=== PATIENT | male | born 1955 | race Caucasian/White ===

== ENCOUNTER 2023-02-06 11:29 | Outpatient (CLI) | payer OTHER, SELFPAY ==
--- OUTSIDE RECORDS SUMMARY | 2023-02-06 11:33 | XMS_ITS | Continuity of Care Document ---
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 Plaquenil 200 mg tablet Denied Take 1 tablet 2 times daily - Active Patient needs to contact clinic. methotrexate sodium 2.5 mg tablet Denied take 5 Tablet by oral route every week - Active Patient needs to contact clinic folic acid 1 mg tablet Take 4 tablets daily - Active Remicade 100 mg intravenous solution Administer REMICADE 700mg IV every 8 weeks - Active gabapentin 300 mg capsule take 1 capsule by oral route 2 times daily as needed - Active TYLENOL (unknown strength) take 1 tablet by oral route 1-2 times daily Not Available - Active Imitrex 50 mg tablet take 2 tablet (100MG) by oral route once with fluids as early as possible after the onset of a migraine attack;may repeat after 2 hours if headache returns, not to exceed 200mg in 24hrs - Active omeprazole 20 mg Cap, delayed release take 1 capsule (20MG) by oral route every day 20 MG - Active Procedures Procedure Date Office/Outpatient Visit, Est Routine Venipuncture Rbc Sed Rate, Nonautomated Assay Of Serum Albumin Assay Of Creatinine Transferase (Ast) (Sgot) Alanine Amino (Alt) (Sgpt) CReactive Protein Complete Cbc, Automated Remicade Infliximab Chemo, Iv Infusion, 1 Hr Chemo, Iv Infusion, Addl Hr Normal Saline Solution Infus Remicade Infliximab Chemo, Iv Infusion, 1 Hr Chemo, Iv Infusion, Addl Hr Normal Saline Solution Infus Office/Outpatient Visit, Est Routine Venipuncture Rbc Sed Rate, Nonautomated Assay Of Serum Albumin Assay Of Creatinine Transferase (Ast) (Sgot) Alanine Amino (Alt) (Sgpt) CReactive Protein Complete Cbc, Automated Remicade Infliximab Chemo, Iv Infusion, 1 Hr Chemo, Iv Infusion, Addl Hr Normal Saline Solution Infus Office/Outpatient Visit, Est Routine Venipuncture Specimen Handling Rbc Sed Rate, Nonautomated Assay Of Serum Albumin Assay Of Creatinine Transferase (Ast) (Sgot) Alanine Amino (Alt) (Sgpt) CReactive Protein Complete Cbc, Automated Tb Test, Cell Immun Measure Remicade Infliximab Chemo, Iv Infusion, 1 Hr Chemo, Iv Infusion, Addl Hr Normal Saline Solution Infus Remicade Infliximab Chemo, Iv Infusion, 1 Hr Chemo, Iv Infusion, Addl Hr Normal Saline Solution Infus Office/Outpatient Visit, Est Routine Venipuncture Complete Cbc, Automated Assay Of Serum Albumin Assay Of Creatinine Transferase (Ast) (Sgot) Alanine Amino (Alt) (Sgpt) Encounter Created In Error Dxa Bone Density, Axial Remicade Infliximab Chemo, Iv Infusion, 1 Hr Chemo, Iv Infusion, Addl Hr Normal Saline Solution Infus Remicade Infliximab Chemo, Iv Infusion, 1 Hr Chemo, Iv Infusion, Addl Hr Normal Saline Solution Infus Office/Outpatient Visit, Est Routine Venipuncture Complete Cbc, Automated Assay Of Serum Albumin Assay Of Creatinine Transferase (Ast) (Sgot) Alanine Amino (Alt) (Sgpt) Remicade Infliximab Chemo, Iv Infusion, 1 Hr Chemo, Iv Infusion, Addl Hr Normal Saline Solution Infus Remicade Infliximab Chemo, Iv Infusion, 1 Hr Chemo, Iv Infusion, Addl Hr Normal Saline Solution Infus Office/Outpatient Visit, Est Routine Venipuncture Complete Cbc, Automated Assay Of Serum Albumin Assay Of Creatinine Transferase (Ast) (Sgot) Alanine Amino (Alt) (Sgpt) Remicade Infliximab Chemo, Iv Infusion, 1 Hr Chemo, Iv Infusion, Addl Hr Normal Saline Solution Infus Remicade Infliximab Chemo, Iv Infusion, 1 Hr Chemo, Iv Infusion, Addl Hr Normal Saline Solution Infus Office/Outpatient Visit, Est Routine Venipuncture Complete Cbc, Automated Assay Of Serum Albumin Assay Of Creatinine Transferase (Ast) (Sgot) Alanine Amino (Alt) (Sgpt) Remicade Infliximab Chemo, Iv Infusion, 1 Hr Chemo, Iv Infusion, Addl Hr Normal Saline Solution Infus Office/Outpatient Visit, Est Routine Venipuncture Complete Cbc WAuto Diff Wbc Rbc Sed Rate, Nonautomated CReactive Protein Assay Of Serum Albumin Assay Of Creatinine Transferase (Ast) (Sgot) Alanine Amino (Alt) (Sgpt) Remicade Infliximab Chemo, Iv Infusion, 1 Hr Chemo, Iv Infusion, Addl Hr Normal Saline Solution Infus Remicade Infliximab Chemo, Iv Infusion, 1 Hr Chemo, Iv Infusion, Addl Hr Normal Saline Solution Infus Office/Outpatient Visit, Est Routine Venipuncture Complete Cbc WAuto Diff Wbc Assay Of Serum Albumin Assay Of Creatinine Transferase (Ast) (Sgot) Alanine Amino (Alt) (Sgpt) Remicade Infliximab Chemo, Iv Infusion, 1 Hr Chemo, Iv Infusion, Addl Hr Normal Saline Solution Infus Remicade Infliximab Chemo, Iv Infusion, 1 Hr Chemo, Iv Infusion, Addl Hr Normal Saline Solution Infus Remicade Infliximab Chemo, Iv Infusion, 1 Hr Chemo, Iv Infusion, Addl Hr Normal Saline Solution Infus Office/Outpatient Visit, Est Routine Venipuncture Complete Cbc WAuto Diff Wbc Rbc Sed Rate, Nonautomated CReactive Protein Assay Of Serum Albumin Assay Of Creatinine Transferase (Ast) (Sgot) Alanine Amino (Alt) (Sgpt) Remicade Infliximab Chemo, Iv Infusion, 1 Hr Chemo, Iv Infusion, Addl Hr Normal Saline Solution Infus Remicade Infliximab Chemo, Iv Infusion, 1 Hr Chemo, Iv Infusion, Addl Hr Normal Saline Solution Infus Office/Outpatient Visit, Est Routine Venipuncture Complete Cbc WAuto Diff Wbc Assay Of Serum Albumin Assay Of Creatinine Transferase (Ast) (Sgot) Alanine Amino (Alt) (Sgpt) Dxa Bone Density, Axial Remicade Infliximab Chemo, Iv Infusion, 1 Hr Chemo, Iv Infusion, Addl Hr Normal Saline Solution Infus Office/Outpatient Visit, Est Routine Venipuncture Complete Cbc WAuto Diff Wbc Rbc Sed Rate, Nonautomated CReactive Protein Assay Of Serum Albumin Assay Of Creatinine Transferase (Ast) (Sgot) Alanine Amino (Alt) (Sgpt) Remicade Infliximab Chemo, Iv Infusion, 1 Hr Chemo, Iv Infusion, Addl Hr Normal Saline Solution Infus Remicade Infliximab Chemo, Iv Infusion, 1 Hr Chemo, Iv Infusion, Addl Hr Normal Saline Solution Infus Remicade Infliximab Chemo, Iv Infusion, 1 Hr Chemo, Iv Infusion, Addl Hr Normal Saline Solution Infus Office/Outpatient Visit, Est Routine Venipuncture Complete Cbc WAuto Diff Wbc Assay Of Serum Albumin Assay Of Creatinine Transferase (Ast) (Sgot) Alanine Amino (Alt) (Sgpt) Remicade Infliximab Chemo, Iv Infusion, 1 Hr Chemo, Iv Infusion, Addl Hr Normal Saline Solution Infus Remicade Infliximab Chemo, Iv Infusion, 1 Hr Chemo, Iv Infusion, Addl Hr Normal Saline Solution Infus Office/Outpatient Visit, Est Routine Venipuncture Complete Cbc WAuto Diff Wbc Assay Of Serum Albumin Assay Of Creatinine Transferase (Ast) (Sgot) Alanine Amino (Alt) (Sgpt) Remicade Infliximab Chemo, Iv Infusion, 1 Hr Chemo, Iv Infusion, Addl Hr Normal Saline Solution Infus No Charge Office Visit Remicade Infliximab Chemo, Iv Infusion, 1 Hr Chemo, Iv Infusion, Addl Hr Normal Saline Solution Infus Remicade Infliximab Chemo, Iv Infusion, 1 Hr Chemo, Iv Infusion, Addl Hr Normal Saline Solution Infus Office/Outpatient Visit, Est Routine Venipuncture Complete Cbc WAuto Diff Wbc Assay Of Serum Albumin Assay Of Creatinine Transferase Ast Sgot Alanine Amino (Alt) (Sgpt) Remicade Infliximab Chemo, Iv Infusion, 1 Hr Chemo, Iv Infusion, Addl Hr Normal Saline Solution Infus Remicade Infliximab Chemo, Iv Infusion, 1 Hr Chemo, Iv Infusion, Addl Hr Normal Saline Solution Infus Office/Outpatient Visit, Est Routine Venipuncture Complete Cbc WAuto Diff Wbc Assay Of Serum Albumin Assay Of Creatinine Transferase Ast Sgot Alanine Amino Alt Sgpt Remicade Infliximab Chemo, Iv Infusion, 1 Hr Chemo, Iv Infusion, Addl Hr Normal Saline Solution Infus Remicade Infliximab Chemo, Iv Infusion, 1 Hr Chemo, Iv Infusion, Addl Hr Normal Saline Solution Infus Office/Outpatient Visit, Est Routine Venipuncture Complete Cbc WAuto Diff Wbc Assay Of Serum Albumin Assay Of Creatinine Transferase Ast Sgot Alanine Amino Alt Sgpt Remicade Infliximab Chemo, Iv Infusion, 1 Hr Chemo, Iv Infusion, Addl Hr Normal Saline Solution Infus Remicade Infliximab Chemo, Iv Infusion, 1 Hr Chemo, Iv Infusion, Addl Hr Normal Saline Solution Infus Office/Outpatient Visit, Est Routine Venipuncture Complete Cbc WAuto Diff Wbc Assay Of Serum Albumin Assay Of Creatinine Transferase Ast Sgot Alanine Amino Alt Sgpt Dxa Bone Density, Axial Office/Outpatient Visit, Est Routine Venipuncture Complete Cbc WAuto Diff Wbc Assay Of Serum Albumin Assay Of Creatinine Transferase Ast Sgot Alanine Amino Alt Sgpt Advance Directives Directive Yes / No Effective Date File Name No Information Encounters Encounter Description Practice Location Reason(s) For Visit Diagnoses Date Provider Providers Copied on Encounter [facility] , [address], [place], [address], [place] tel:[phone] [facility] No Information 0 Wilton Elvira. [address], [address], [place], [address], [place]. tel:[phone] [facility] , [address], [place], [address], [place] tel:[phone] [facility] , No Information 8 9 Reena Yanick. [facility] [address], [place], [address], [place]. tel:[phone] [facility] , [address], [place], [address], [place] tel:[phone] [facility] , No Information 3 0-201 9 Reena Yanick. [facility] [address], [place], [address], [place]. tel:[phone] [facility] , [address], [place], [address], [place] tel:[phone] [facility] , No Information 2201 9 Reena Yanick. [facility] [address], [place], [address], [place]. tel:[phone] Office/Outpa tient Visit, Est [facility] , [address], [place], [address], [place] tel:[phone] [facility] , Rheumatoid arthritis (chief complaint) Diabetes mellitus type 2Seronegativ e RAOsteopenia High risk medication monitoring Reena Herndon. [facility] [address], [place], [address], [place]. tel:[phone] Referring Provider: Yanick Lentz, [facility] [address], [place], [address]. tel:[phone] [facility] , [address], [place], [address], [place] tel:[phone] [facility] , No Information Matthew Copeland. [facility] [address], [place], [address], [place]. tel:[phone] Referring Provider: Dinorah Gamble, [facility] [address], [place], [address]. tel:[phone] [facility] , [address], [place], [address], [place] tel:[phone] [facility] , Seronegative RA Mariluz White. [facility] [address], [place], [address], [place]. tel:[phone] Referring Provider: Christopher Lentz, [facility] [address], [place], [address]. tel:[phone] Office/Outpa tient Visit, Est [facility] , [address], [place], [address], [place] tel:[phone] [facility] , Rheumatoid arthritis (chief complaint) Diabetes mellitus type 2Seronegativ e RAOsteopenia High risk medication monitoring 8 Reena Herndon. [facility] [address], [place], [address], [place]. tel:[phone] Referring Provider: Yanick Lentz, [facility] [address], [place], [address]. tel:[phone] [facility] , [address], [place], [address], [place] tel:[phone] [facility] , Seronegative RA Mariluz White. [facility] [address], [place], [address], [place]. tel:[phone] Referring Provider: Christopher Lentz [facility] [address], [place], [address]. tel:[phone] Office/Outpa tient Visit, Est [facility] , [address], [place], [address], [place] tel:[phone] [facility] , Rheumatoid arthritis (chief complaint) Diabetes mellitus type 2Seronegativ e RABack painOsteopen iaHigh risk medication monitoring 8 Reena Herndon. [facility] [address], [place], [address], [place]. tel:[phone] Referring Provider: Yanick Lentz, [facility] [address], [place], [address]. tel:[phone] [facility] , [address], [place], [address], [place] tel:[phone] [facility] , Seronegative RA 8 Skemp Christopher. [facility] [address], [place], [address], [place]. tel:[phone] Referring Provider: Christopher Mcgraw A, [facility] [address], [place], [address]. tel:[phone] [facility] , [address], [place], [address], [place] tel:[phone] [facility] , Seronegative RA 8 Skemp Christopher. [facility] [address], [place], [address], [place]. tel:[phone] Referring Provider: Christopher Mcgraw A, [facility] [address], [place], [address]. tel:[phone] [facility] , [address], [place], [address], [place] tel:[phone] [facility] , No Information 7 Reena Herndon. [facility] [address], [place], [address], [place]. tel:[phone] Office/Outpa tient Visit, Est [facility] , [address], [place], [address], [place] tel:[phone] [facility] , Rheumatoid arthritis (chief complaint) Diabetes mellitus type 2Seronegativ e RAOsteopenia High risk medication monitoringBa ck pain Nov-2 7-201 7 [facility] Yanick. [facility] [address], [place], [address], [place]. tel:[phone] Referring Provider: Yanick Lentz, [facility] [address], [place], [address]. tel:[phone] [facility] , [address], [place], [address], [place] tel:[phone] [facility] , No Information [facility] Yanick. [facility] [address], [place], [address], [place]. tel:[phone] Referring Provider: Yanick Lentz, [facility] [address], [place], [address]. tel:[phone] [facility] , [address], [place], [address], [place] tel:[phone] [facility] , Osteopenia [facility] Yanick. [facility] [address], [place], [address], [place]. tel:[phone] Referring Provider: Yanick Lentz, [facility] [address], [place], [address]. tel:[phone] [facility] , [address], [place], [address], [place] tel:[phone] [facility] , Seronegative RA Apr- [facility] Yanick. [facility] [address], [place], [address], [place]. tel:[phone] Referring Provider: Yanick Lentz, [facility] [address], [place], [address]. tel:[phone] [facility] , [address], [place], [address], [place] tel:[phone] [facility] , Seronegative RA Reena Herndon. [facility] [address], [place], [address], [place]. tel:[phone] Referring Provider: Yanick Lentz, [facility] [address], [place], [address]. tel:[phone] Office/Outpa tient Visit, Est [facility] , [address], [place], [address], [place] tel:[phone] [facility] , Rheumatoid arthritis (chief complaint) Diabetes mellitus type 2Seronegativ e RAOsteopenia High risk medication monitoring Reena Herndon. [facility] [address], [place], [address], [place]. tel:[phone] Referring Provider: Yanick Lentz, [facility] [address], [place], [address]. tel:[phone] [facility] , [address], [place], [address], [place] tel:[phone] [facility] , Seronegative RA Matthew Copeland. [facility] [address], [place], [address], [place]. tel:[phone] Referring Provider: Dinorah Gamble, [facility] [address], [place], [address]. tel:[phone] [facility] , [address], [place], [address], [place] tel:[phone] [facility] , Seronegative RA Oct-2 Matthew Copeland. [facility] [address], [place], [address], [place]. tel:[phone] Referring Provider: Dinorah Gamble, [facility] [address], [place], [address]. tel:[phone] Office/Outpa tient Visit, Est [facility] , [address], [place], [address], [place] tel:[phone] [facility] , Rheumatoid arthritis (chief complaint) Seronegative RAOsteopenia High risk medication monitoringDi abetes mellitus type 2 Sep- Reena Herndon. [facility] [address], [place], [address], [place]. tel:[phone] Referring Provider: Yanick Lentz, [facility] [address], [place], [address]. tel:[phone] [facility] , [address], [place], [address], [place] tel:[phone] [facility] , Seronegative RA Jul- Reena Herndon. [facility] [address], [place], [address], [place]. tel:[phone] Referring Provider: Yanick Lentz, [facility] [address], [place], [address]. tel:[phone] [facility] , [address], [place], [address], [place] tel:[phone] [facility] , Seronegative RA Jun-0 6 [facility] Yanick. [facility] [address], [place], [address], [place]. tel:[phone] Referring Provider: Yanick Lentz, [facility] [address], [place], [address]. tel:[phone] Office/Outpa tient Visit, Est [facility] , [address], [place], [address], [place] tel:[phone] [facility] , Rheumatoid arthritis (chief complaint) Seronegative RAOsteopenia High risk medication monitoring 6 [facility]. [facility] [address], [place], [address], [place]. tel:[phone] Referring Provider: Yanick Lentz, [facility] [address], [place], [address]. tel:[phone] [facility] , [address], [place], [address], [place] tel:[phone] [facility] , Seronegative RA Mar- 6 [facility] Yanick. [facility] [address], [place], [address], [place]. tel:[phone] Referring Provider: Yanick Lentz, [facility] [address], [place], [address]. tel:[phone] Office/Outpa tient Visit, Est [facility] , [address], [place], [address], [place] tel:[phone] [facility] , Rheumatoid arthritis (chief complaint) Seronegative RAOsteopenia High risk medication monitoring 6 [facility] Yanick. [facility] [address], [place], [address], [place]. tel:[phone] Referring Provider: Yanick Lentz, [facility] [address], [place], [address]. tel:[phone] [facility] , [address], [place], [address], [place] tel:[phone] [facility] , Seronegative RA 6 [facility] Yanick. [facility] [address], [place], [address], [place]. tel:[phone] Referring Provider: Yanick Lentz, [facility] [address], [place], [address]. tel:[phone] [facility] , [address], [place], [address], [place] tel:[phone] [facility] , Seronegative RA 6 [facility] Yanick. [facility] [address], [place], [address], [place]. tel:[phone] Referring Provider: Yanick Lentz, [facility] [address], [place], [address]. tel:[phone] Office/Outpa tient Visit, Est [facility] , [address], [place], [address], [place] tel:[phone] [facility] , Rheumatoid arthritis (chief complaint) Seronegative RAOsteopenia High risk medication monitoring 6 Reena Herndon. [facility] [address], [place], [address], [place]. tel:[phone] Referring Provider: Yanick Lentz, [facility] [address], [place], [address]. tel:[phone] [facility] , [address], [place], [address], [place] tel:[phone] [facility] , No Information 6 Reena Herndon. [facility] [address], [place], [address], [place]. tel:[phone] Referring Provider: Yanick Lentz, [facility] [address], [place], [address]. tel:[phone] [facility] , [address], [place], [address], [place] tel:[phone] [facility] , Seronegative RA 6 Reenacassidy Herndon. [facility] [address], [place], [address], [place]. tel:[phone] Referring Provider: Yanick Lentz, [facility] [address], [place], [address]. tel:[phone] [facility] , [address], [place], [address], [place] [phone] [facility] , Seronegative RA Nov- 0-201 5 Skemp Christopher. [facility] [address], [place], [address], [place]. tel:[phone] Referring Provider: Christopher Skemp A, [facility] [address], [place], [address]. tel:[phone] [facility] , [address], [place], [address], [place] tel:[phone] [facility] , Seronegative RA 7201 5 Reena Herndon. [facility] [address], [place], [address], [place]. tel:[phone] [facility] , [address], [place], [address], [place] tel:[phone] [facility] , Seronegative RA Mar- 5201 5 Reena Herndon. [facility] [address], [place], [address], [place]. tel:[phone] Referring Provider: Yanick Lentz, [facility] [address], [place], [address]. tel:[phone] [facility] , [address], [place], [address], [place] tel:[phone] [facility] , Seronegative RA 6201 5 Reena Herndon. [facility] [address], [place], [address], [place]. tel:[phone] Office/Outpa tient Visit, Est [facility] , [address], [place], [address], [place] tel:[phone] [facility] , Rheumatoid arthritis (chief complaint) Rheumatoid ArthritisOst eopeniaThera peutic Drug Monitoring Reena Yanick. [facility] [address], [place], [address], [place]. tel:[phone] Referring Provider: Yanick Lentz, [facility] [address], [place], [address]. tel:[phone] [facility] , [address], [place], [address], [place] tel:[phone] [facility] , Rheumatoid Arthritis Reena Yanick. [facility] [address], [place], [address], [place]. tel:[phone] Referring Provider: Yanick Lentz, [facility] [address], [place], [address]. tel:[phone] [facility] , [address], [place], [address], [place] tel:[phone] [facility] , Rheumatoid Arthritis Reena Herndon. [facility] [address], [place], [address], [place]. tel:[phone] Referring Provider: Yanick Lentz, [facility] [address], [place], [address]. tel:[phone] Office/Outpa tient Visit, Est [facility] , [address], [place], [address], [place] tel:[phone] [facility] , Rheumatoid arthritis (chief complaint) Rheumatoid ArthritisThe rapeutic Drug MonitoringOs teopenia Reena Herndon. [facility] [address], [place], [address], [place]. tel:[phone] Referring Provider: Yanick Lentz, [facility] [address], [place], [address]. tel:[phone] [facility] , [address], [place], [address], [place] tel:[phone] [facility] , No Information Reena Herndon. [facility] [address], [place], [address], [place]. tel:[phone] Referring Provider: Yanick Lentz, [facility] [address], [place], [address]. tel:[phone] [facility] , [address], [place], [address], [place] tel:[phone] [facility] , Rheumatoid Arthritis Reena Herndon. [facility] [address], [place], [address], [place]. tel:[phone] Referring Provider: Yanick Lentz, [facility] [address], [place], [address]. tel:[phone] [facility] , [address], [place], [address], [place] tel:[phone] [facility] , Rheumatoid Arthritis 5 Reena Herndon. [facility] [address], [place], [address], [place]. tel:[phone] Office/Outpa tient Visit, Est [facility] , [address], [place], [address], [place] tel:[phone] [facility] , Rheumatoid Arthritis (chief complaint) Rheumatoid ArthritisDis order of bone and cartilage, unspecifiedT herapeutic Drug Monitoring Reena Herndon. [facility] [address], [place], [address], [place]. tel:[phone] Referring Provider: Yanick Lentz, [facility] [address], [place], [address]. tel:[phone] [facility] , [address], [place], [address], [place] tel:[phone] [facility] , Rheumatoid Arthritis 5 Reena Herndon. [facility] [address], [place], [address], [place]. tel:[phone] Referring Provider: Yanick Lentz, [facility] [address], [place], [address]. tel:[phone] [facility] , [address], [place], [address], [place] tel:[phone] [facility] , Rheumatoid Arthritis 5 Reena Herndon. [facility] [address], [place], [address], [place]. tel:[phone] [facility] , [address], [place], [address], [place] tel:[phone] [facility] , Rheumatoid Arthritis 4 Reena Herndon. [facility] [address], [place], [address], [place]. tel:[phone] Referring Provider: Yanick Lentz, [facility] [address], [place], [address]. tel:[phone] [facility] , [address], [place], [address], [place] tel:[phone] [facility] , Rheumatoid Arthritis 4 Reena Herndon. [facility] [address], [place], [address], [place]. tel:[phone] [facility] , [address], [place], [address], [place] tel:[phone] [facility] , Rheumatoid Arthritis 4 Reena Herndon. [facility] [address], [place], [address], [place]. tel:[phone] Referring Provider: Yanick Lentz, [facility] [address], [place], [address]. tel:[phone] [facility] , [address], [place], [address], [place] tel:[phone] [facility] , Rheumatoid Arthritis 4 Reena Herndon. [facility] [address], [place], [address], [place]. tel:[phone] Office/Outpa tient Visit, Est [facility] , [address], [place], [address], [place] tel:[phone] [facility] , Rheumatoid Arthritis (chief complaint) Rheumatoid ArthritisThe rapeutic Drug MonitoringDi sorder of bone and cartilage, unspecifiedP lantar fascial fibromatosis 0 4 Reena Herndon. [facility] [address], [place], [address], [place]. tel:[phone] Referring Provider: Yanick Lentz, [facility] [address], [place], [address]. tel:[phone] [facility] , [address], [place], [address], [place] tel:[phone] [facility] , Rheumatoid Arthritis 4 Reena Herndon. [facility] [address], [place], [address], [place]. tel:[phone] Referring Provider: Yanick Lentz, [facility] [address], [place], [address]. tel:[phone] [facility] , [address], [place], [address], [place] tel:[phone] [facility] , Rheumatoid Arthritis 4 Reena Herndon. [facility] [address], [place], [address], [place]. tel:[phone] [facility] , [address], [place], [address], [place] tel:[phone] [facility] , Rheumatoid Arthritis 0 4 [facility] Yanick. [facility] , [facility] [address], [place], [address], [place]. tel:[phone] Referring Provider: Yanick Lentz, [facility] [address], [place], [address]. tel:[phone] [facility] , [address], [place], [address], [place] tel:[phone] [facility] , Rheumatoid Arthritis 0 4 [facility] Yan[facility]. [facility] , [facility] [address], [place], [address], [place]. tel:[phone] Office/Outpa tient Visit, Est [facility] , [address], [place], [address], [place] tel:[phone] [facility] , Rheumatoid Arthritis (chief complaint) Rheumatoid ArthritisDis order of bone and cartilage, unspecifiedT herapeutic Drug MonitoringDy suria 4 Reenacassidy Herndon. [facility] , [facility] [address], [place], [address], [place]. tel:[phone] Referring Provider: Yanick Lentz, [facility] [address], [place], [address]. tel:[phone] [facility] , [address], [place], [address], [place] tel:[phone] [facility] , Rheumatoid Arthritis 4 [facility] Yan[facility]. [facility] , [facility] [address], [place], [address], [place]. tel:[phone] Referring Provider: Yanick Lentz, [facility] [address], [place], [address]. tel:[phone] [facility] , [address], [place], [address], [place] tel:[phone] [facility] , Monitor chronic high risk medications (chief complaint) No Information 4 [facility] Yanick. [facility] [address], [place], [address], [place]. tel:[phone] Referring Provider: Yanick Lentz, [facility] [address], [place], [address]. tel:[phone] [facility] , [address], [place], [address], [place] tel:[phone] [facility] , Rheumatoid Arthritis 4 Reenacassidy Herndon. [facility] [address], [place], [address], [place]. tel:[phone] [facility] , [address], [place], [address], [place] tel:[phone] [facility] , Rheumatoid Arthritis 4 [facility] Yan[place]. [facility] , [facility] [address], [place], [address], [place]. tel:[phone] Referring Provider: Yanick Lentz, [facility] [address], [place], [address]. tel:[phone] [facility] , [address], [place], [address], [place] tel:[phone] [facility] , Rheumatoid Arthritis 4 Reena Herndon. [facility] [address], [place], [address], [place]. tel:[phone] [facility] , [address], [place], [address], [place] tel:[phone] [facility] , Rheumatoid Arthritis 4 Reenacassidy Herndon. [facility] , [facility] [address], [place], [address], [place]. tel:[phone] [facility] , [address], [place], [address], [place] tel:[phone] [facility] , Rheumatoid Arthritis 3 Reenacassidy Herndon. [facility] [address], [place], [address], [place]. tel:[phone] Referring Provider: Yanick Lentz, [facility] [address], [place], [address]. tel:[phone] [facility] , [address], [place], [address], [place] tel:[phone] [facility] , Rheumatoid Arthritis 3 Reena Herndon. [facility] [address], [place], [address], [place]. tel:[phone] [facility] , [address], [place], [address], [place] tel:[phone] [facility] , Rheumatoid Arthritis 3 [facility]. [facility] , [facility] [address], [place], [address], [place]. tel:[phone] Office/Outpa tient Visit, Est [facility] , [address], [place], [address], [place] tel:[phone] [facility] , Rheumatoid Arthritis (chief complaint) Rheumatoid ArthritisDis order of bone and cartilage, unspecifiedT herapeutic Drug Monitoring 3 [facility] Yan[facility]. [facility] , [facility] [address], [place], [address], [place]. tel:[phone] Referring Provider: Yanick Lentz, [facility] [address], [place], [address]. tel:[phone] [facility] , [address], [place], [address], [place] tel:[phone] [facility] , Rheumatoid Arthritis 3 [facility]. [facility] , [facility] [address], [place], [address], [place]. tel:[phone] Referring Provider: Yanick Lentz, [facility] [address], [place], [address]. tel:[phone] [facility] , [address], [place], [address], [place] tel:[phone] [facility] , Rheumatoid Arthritis 3 Reena Herndon. [facility] [address], [place], [address], [place]. tel:[phone] [facility] , [address], [place], [address], [place] tel:[phone] [facility] , Rheumatoid Arthritis Reena Herndon. [facility] [address], [place], [address], [place]. tel:[phone] Referring Provider: Yanick Lentz, [facility] [address], [place], [address]. tel:[phone] [facility] , [address], [place], [address], [place] tel:[phone] [facility] , Rheumatoid Arthritis Reena Herndon. [facility] [address], [place], [address], [place]. tel:[phone] Office/Outpa tient Visit, Est [facility] , [address], [place], [address], [place] tel:[phone] [facility] , Rheumatoid Arthritis (chief complaint) Rheumatoid ArthritisDis order of bone and cartilage, unspecifiedT herapeutic Drug Monitoring 3 Reena Herndon. [facility] , [facility] [address], [place], [address], [place]. tel:[phone] Referring Provider: Yanick Lentz, [facility] , [facility] [address], [place], [address]. tel:[phone] [facility] , [address], [place], [address], [place] tel:[phone] [facility] , Rheumatoid Arthritis 7 3 [facility]. [facility] , [facility] [address], [place], [address], [place]. tel:[phone] Referring Provider: Yanick Lentz, [facility] [address], [place], [address]. tel:[phone] [facility] , [address], [place], [address], [place] tel:[phone] [facility] , Rheumatoid Arthritis 0201 3 [facility]. [facility] , [facility] [address], [place], [address], [place]. tel:[phone] [facility] , [address], [place], [address], [place] tel:[phone] [facility] , No Information 2 3 Reena Yanick. [facility] , [facility] [address], [place], [address], [place]. tel:[phone] Referring Provider: Yancik Lentz, [facility] , [facility] [address], [place], [address]. tel:[phone] Office/Outpa tient Visit, Est [facility] , [address], [place], [address], [place] tel:[phone] [facility] , Rheumatoid Arthritis (chief complaint) Rheumatoid ArthritisDis order of bone and cartilage, unspecifiedT herapeutic Drug MonitoringDi sorders of bursae and tendons in shoulder region, unspecified Apr-2 3 Reena Yanick. [facility] , [facility] [address], [place], [address], [place]. tel:[phone] Referring Provider: Yanick Lentz, [facility] [address], [place], [address]. tel:[phone] [facility] , [address], [place], [address], [place] tel:[phone] [facility] , Rheumatoid Arthritis Oct-0 3 Reena Yanick. [facility] , [facility] [address], [place], [address], [place]. tel:[phone] Referring Provider: Yanick Lentz, [facility] , [facility] [address], [place], [address]. tel:[phone] [facility] , [address], [place], [address], [place] tel:[phone] [facility] , Rheumatoid Arthritis Sep- 3 Reena Yanick. [facility] , [facility] [address], [place], [address], [place]. tel:[phone] Referring Provider: Yanick Lentz, [facility] , [facility] [address], [place], [address]. tel:[phone] [facility] , [address], [place], [address], [place] tel:[phone] [facility] , Rheumatoid Arthritis 3 Reena Herndon. [facility] [address], [place], [address], [place]. tel:[phone] Office/Outpa tient Visit, Est [facility] , [address], [place], [address], [place] tel:[phone] [facility] , Rheumatoid Arthritis (chief complaint) Rheumatoid ArthritisThe rapeutic Drug MonitoringDi sorders of bursae and tendons in shoulder region, unspecifiedO ther bursitis disordersDis order of bone and cartilage, unspecified 3 Reena Herndon. [facility] [address], [place], [address], [place]. tel:[phone] Referring Provider: Yanick Lentz, [facility] [address], [place], [address]. tel:[phone] [facility] , [address], [place], [address], [place] tel:[phone] [facility] , No Information 3 Reena Herndon. [facility] [address], [place], [address], [place]. tel:[phone] Referring Provider: Yanick Lentz, [facility] [address], [place], [address]. tel:[phone] Office/Outpa tient Visit, Est [facility] , [address], [place], [address], [place] tel:[phone] [facility] , Rheumatoid Arthritis (chief complaint) Rheumatoid ArthritisOth er specified counselingTh erapeutic Drug MonitoringDi sorders of bursae and tendons in shoulder region, unspecified 0201 2 Reena Herndon. [facility] [address], [place], [address], [place]. tel:[phone] Referring Provider: Yanick Lentz [facility] [address], [place], [address]. tel:[phone] Family History Family Member Type Diagnosis Age At Onset Problem (finding) No family hist ory of Rheumatoid arthritis Payers Payer name Insurance type Covered libertarian ID Authoriza tion(s) No Information Social History Type Description Quantity Date Captured Comments Alcohol Use Details Unknown Caffeine Use Details Unknown Tobacco Use Status No Information Smoking Status No Information Sex Male Chief Complaint And Reason For Visit No Information Reason For Referral Reason For Referral No Information History Of Present Illness Encounter Date Complaint History Of Prese nt Illness Rheumatoid arthritis Rheumatoid arthritis Rheumatoid arthritis Rheumatoid arthritis Rheumatoid arthritis Rheumatoid arthritis Rheumatoid arthritis Rheumatoid arthritis Rheumatoid arthritis Rheumatoid arthritis Rheumatoid arthritis Functional Status Date Functional Assessmen t No Information Instructions Date Instruction Additional Infor mation No Information Assessments Type Assessment Date No Information Patient Care Teams Name Effective Dates (start - stop) Status Members No Information
--- OUTSIDE RECORDS SUMMARY | 2023-02-06 11:33 | XMS_ITS | Continuity of Care Document ---
Author Name Unknown Organization [facility] Address [address] [place] [address] Phone Care Team Providers Care Rugby Union Footballer Name Role Phone River BARRAGAN, PhD, Michael Unavailable Unavai lable Allergies, Adverse Reactions, Alerts Substance Reaction Status Criticality PENICILLIN Active No Information doxycycline Rash Active No Information Medications Medication Instructions Dosage Effective Dates (start - stop) Status Comments ACETAMINOPHEN (unknown strength) Not Available - Active FOLIC ACID (unknown strength) Not Available - Active GABAPENTIN (unknown strength) Not Available - Active GLIMEPIRIDE (unknown strength) Not Available - Active LORATADINE (unknown strength) Not Available - Active MELOXICAM (unknown strength) Not Available - Active METFORMIN HCL (unknown strength) Not Available - Active OMEPRAZOLE (unknown strength) Not Available - Active OXYCODONE HCL (unknown strength) Not Available - Active PREDNISONE (unknown strength) Not Available - Active SUMATRIPTAN (unknown strength) Not Available - Active Procedures Procedure Date Office/Outpatient Visit,Est, Low 2020 Office/Outpatient Visit,Est, Mod 2020 Office/Outpatient Visit,Est, High Advance Directives Directive Yes / No Effective Date File Name No Information Encounters Encounter Description Practice Location Reason(s) For Visit Diagnoses Date Provider Providers Copied on Encounter [facility], [address], [facility] [place], [id number], [place] tel:[phone] [facility] No Information Rivre Rodriguez. [facility], [address], [place], [address], [place]. tel:[phone] Office/Outpat ient Visit,Est, Low [facility], [address], [place], [id number], [place] tel:[phone] [facility] No Information River Rodriguez. [facility], [address], [place], [address], [place]. tel:[phone] Referring Provider: Daphney Abbott, [address], [address]. tel:[phone] Office/Outpat ient Visit,Est, Mod [facility], [address], [place], [place], [id number], [place] tel:[phone] [facility] Spinal stenosis, lumbar region with neurogenic claudication River Rodriguez. [facility], [address], [place], [address], [place]. tel:[phone] Referring Provider: Daphney Abbott, [address], [address]. tel:[phone] Office/Outpat ient Visit,Est, High [facility], [address], [place], [id number], [place] tel:[phone] [facility] Spinal stenosis, lumbar region with neurogenic claudication River Rodriguez. [facility], [address], [place], [address], [place]. tel:[phone] Referring Provider: Daphney Abbott, [address], [address]. tel:[phone] [facility], [address], [place], [id number], [place] tel:[phone] [facility] [place] Cervicalgia River Rodriguez. [facility], [address], [place], [address], [place]. [phone] Family History Family Member Type Diagnosis Age At Onset No Information Payers Payer name Insurance type Covered green party ID Berenice nguyen(s) [facility] [id number] Social History Type Description Quantity Date Captured Comments Alcohol Use Details Unknown Caffeine Use Details Unknown Tobacco Use Status No Information Smoking Status No Information Sex Male Chief Complaint And Reason For Visit No Information Reason For Referral Reason For Referral No Information History Of Present Illness Encounter Date Complaint History Of Prese nt Illness No Information Functional Status Date Functional Assessmen t No Information Instructions Date Instruction Additional Infor mation No Information Assessments Type Assessment Date No Information Patient Care Teams Name Effective Dates (start - stop) Status Members No Information
[2023-02-06 14:09] LABS: Chloride* 105 mmol/L (96-114); Potassium* 4.3 mmol/L (3.6-5.1); Sodium* 140 mmol/L (135-149)
[2023-02-06 14:11] LABS: Cholesterol* 183 mg/dL (90-199)
[2023-02-06 14:12] LABS: Blood Urea Nitrogen* 32 mg/dL (7-30); Carbon Dioxide* 26 mmol/L (20-32); Estimated Glomerular Filt Rate 81 ml/min; Glucose* 139 mg/dL (60-115); Triglycerides* 172 mg/dL (40-149)
[2023-02-06 14:13] LABS: Calcium* 9.5 mg/dL (8.4-10.6); HDL Cholesterol* 41 mg/dL (>=40); LDL Cholesterol Calculated 108 mg/dL (<100)
== END 2023-02-06 11:30 | disposition home or self-care (01) ==
PROVIDERS: PCP Family Medicine; Visit Provider Family Medicine
DX: E11.9 Type 2 diabetes mellitus without complications (principal); E78.5 Hyperlipidemia, unspecified; Z12.5 Encounter for screening for malignant neoplasm of prostate
CPT/HCPCS: 80048; 80061; 84153

== ENCOUNTER 2024-03-17 08:24 | Outpatient (CLI) | payer OTHER, SELFPAY ==
--- OUTSIDE RECORDS SUMMARY | 2024-03-17 08:27 | XMS_ITS ---
Author Organization [facility] Address [address] [place] [address] Care Team Providers Care Peanut Salter Name Role Phone Unavailable Unavailable Unavailable Surgery Details Not on file Complications Check Surgery Details section. Procedure Estimated Blood Loss Check Surgery Details section. Procedure Findings Check Surgery Details section. Procedure Specimens Taken Check Surgery Details section.
--- OUTSIDE RECORDS SUMMARY | 2024-03-17 08:27 | XMS_ITS | Clinical Summary ---
Author Organization [facility] Address [address] [place] [address] Care Team Providers Care Front End Software Developer Name Role Phone Elsewhere, Pcp Primary Care Provider Unavailabl e Source Comments Patient records contain information from all sites at [facility]. For routine questions regarding patient records, call [phone] during business hours, M-F 8:00 AM - 5:00 PM Central Time. Record requests for emergency care only can be directed to [phone] at any time.[facility] Allergies No known active allergies Medications Medication Sig Dispensed Refills Start Date End Date Status acetaminophen (TYLENOL) 325 mg tablet Take 650 mg by mouth. Active blood sugar diagnostic strips Prodigy test strips, Dispense item covered by pt ins. Test one time per day. 03/01/2020 Active celecoxib (CeleBREX) 200 mg capsule Take 200 mg by mouth. 05/12/2021 Active folic acid 1 mg tablet Take 1 tablet by mouth daily. 03/26/2022 Active gabapentin (NEURONTIN) 600 mg tablet TAKE ONE TABLET BY MOUTH EVERY MORNING, TAKE ONE TABLET IN THE AFTERNOON, AND TAKE TWO TABLETS AT BEDTIME 12/01/2021 Active glimepiride (AMARYL) 2 mg tablet TAKE ONE TABLET BY MOUTH EVERY MORNING AND TAKE ONE TABLET BY MOUTH EVERY EVENING 04/10/2021 Active meloxicam (MOBIC) 15 mg tablet Take 1 tablet by mouth daily. 12/13/2020 Active metFORMIN (GLUCOPHAGE) 1,000 mg tablet Take 1 tablet by mouth 2 (two) times a day with meals. 02/28/2021 Active omeprazole (PriLOSEC) [address] capsule Take 1 capsule by mouth daily. 03/02/2022 Active oxyCODONE (ROXICODONE) 5 mg immediate release tablet Take 5 mg by mouth every 6 (six) hours as needed. 10/06/2020 Active predniSONE (DELTASONE) 1 mg tablet Take 1 tablet by mouth 2 (two) times a day with meals. 10/31/2020 Active predniSONE (DELTASONE) 20 mg tablet Take 20 mg by mouth. 05/30/2021 Active SUMAtriptan (IMITREX) 100 mg tablet TAKE ONE TABLET BY MOUTH TWICE DAILY NEEDED FOR MIGRAINE. TAKE AT MINIMUM OF 2 HOURS APART- MAX DOSE 200MG / 24HRS 05/02/2021 Active Social History Tobacco Use Types Packs/Day Years Used Date Smoking Tobacco: Former Cigarettes Smokeless Tobacco: Never Nutrition Answer Date Recorded Nutrition: EVOO Fat Source Unknown 12/12 Nutrition: Servings of Fruits/Vegetables per Day Not on file 12/12/2022 Dental Answer Date Recorded Dental: Regular Dentist Unknown 12/13/19 Sex and Gender Information Value Date Recorded Sex Assigned at Not on file Gender Identity Not on file Sexual Orientation Not on file Plan of Treatment Health Maintenance Due Date Last Done Comments CT Colonography 1955 Cologuard 1955 Colonoscopy 1955 Colorectal Cancer Screening 1955 FIT 1955 Hepatitis C Screening 1955 COVID-19 Vaccine (#1) 1958 Zoster Vaccines (1 of 2) 1972 Pneumococcal vaccine (65+ years) (2 of 2 - PPSV23 or PCV20) 02/07/2021 12/13/2020 Depression Screening (Annual PHQ-2) 07/15/2023 Fall Risk Screen (Annual) 07/15/2023 Influenza Vaccine (#1) 2024 Fasting Glucose for Diabetes Screening 05/30/2024 05/30/2021, 05/30/2021, 10/06/2020, Additional history exists DTaP,Tdap,and Td Vaccines (3 - Td or Tdap) 02/06/2033 02/06/2023, 01/18/2012 Abdominal Aortic Aneurysm (AAA) Screen Completed 10/05/2015, 06/09/2014 HPV Vaccines Aged Out No longer eligi ble based on patient's age to complete this topic Care Teams Front End Software Developer Relationship Specialty Start Date End Date Elsewhere, Pcp PCP - General Internal Medicine 12/13/22
--- OUTSIDE RECORDS SUMMARY | 2024-03-17 08:27 | XMS_ITS | Continuity of Care Document ---
Author Organization [facility] Address [address] [place] [address] Phone Care Team Providers Care Oral Hygienist Name Role Phone River BARRAGAN, PhD, Michael [...] Not Available - Active Procedures Procedure Date OFFICE/OUTPATIENT VISIT EST Phone Office/Outpatient Visit,Est, Low 2020 Office/Outpatient Visit,Est, Mod 2020 Office/Outpatient Visit,Est, High Advance Directives Directive Yes / No Effective Date File Name No Information Encounters Encounter Description Practice Location Reason(s) For Visit Diagnoses Date Provider Providers Copied on Encounter [facility], [address], [place], [id number], tel:[phone] [facility] No Information River Rodriguez. [facility], [address], [place], [address], [place]. [phone] OFFICE/OUTPAT IENT VISIT EST Phone [facility], [address], [place], [place], [id number], [place] tel:[phone] [facility] No Information River Rodriguez. [facility], [address], [place], [address], [place]. [phone] Referring Provider: Daphney Abbott, [address], [address]. tel:[phone] Office/Outpat ient Visit,Est, Low [facility], [address], [place], [id number], [place] tel:[phone] [facility] No Information River Rodriguez. [facility], [address], [place], [address], [place]. [phone] Referring Provider: Daphney Abbott, [address], [address]. tel:[phone] Office/Outpat ient Visit,Est, Mod [facility], [address], [place], [id number], [place] tel:[phone] [facility] Spinal stenosis, lumbar region with neurogenic claudication River Rodriguez. [facility], [address], [place], [address], [place]. tel:[phone] Referring Provider: Daphney Abbott, [address], [address]. tel:[phone] Office/Outpat ient Visit,Est, High [facility], [address], [place], [id number], [place] tel:[phone] [facility] Spinal stenosis, lumbar region with neurogenic claudication River Rodriguez. [facility], [address], [place], [address], [place]. tel:[phone] Referring Provider: Daphney Abbott, [facility] [address] [place] [address], [address]. tel:[phone] [facility], [address], [facility] [place] [id number], [place] tel:[phone] [facility] [place] Cervicalgia River Rodriguez. [facility], [address], [place], [address], [place]. tel:[phone] Family History Family Member Type Diagnosis Age At Onset No Information Payers Payer name Insurance type Covered constitution party ID Authoriza tion(s) No Information Social History [...]
--- OUTSIDE RECORDS SUMMARY | 2024-03-17 08:27 | XMS_ITS | Referral Summary ---
Author Organization [facility] Address [address] [place] [address] Care Team Providers Care Supervisor Stone Name Role Phone Elsewhere, Pcp Primary Care Provider Unavailabl e Source Comments Patient records contain information from all sites at [facility]. For routine questions regarding patient records, call [phone] during business hours, M-F 8:00 AM - 5:00 PM Central Time. Record requests for emergency care only can be directed to [phone] at any time.[facility] Allergies No known active allergies Medications Medication [...] Orientation Not on file Plan of Treatment Not on file Care Teams Supervisor Stone Relationship Specialty Start Date End Date Elsewhere, Pcp PCP - General Internal Medicine 12/13/22
--- OUTSIDE RECORDS SUMMARY | 2024-03-17 08:28 | XMS_ITS | Continuity of Care Document ---
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 [address], [address], [place], [address], [place]. tel:[phone] [facility] , [address], [place], [address], [place] tel:[phone] [facility] , No Information 9 Reena Herndon. [facility] [address], [place], [address], [place]. tel:[phone] [facility] , [address], [place], [address], [place] tel:[phone] [facility] , No Information 3 0-201 9 Reenavern Herndon. [facility] [address], [place], [address], [place]. tel:[phone] [facility] , [address], [place], [address], [place] tel:[phone] [facility] , No Information 2201 9 Reenavern Herndon. [facility] [address], [place], [address], [place]. tel:[phone] Office/Outpa tient Visit, Est [facility] , [address], [place], [address], [place] tel:[phone] [facility] , Rheumatoid arthritis (chief complaint) Diabetes mellitus type 2Seronegativ e RAOsteopenia High risk medication monitoring Reena Herndon. [facility] [address], [place], [address], [place]. tel:[phone] Referring Provider: Yanick Lentz, [facility] [address], [place], [address]. tel:[phone] [facility] , [address], [place], [address], [place] tel:[phone] [facility] , No Information Matthew Copeland. [facility] [address], [place], [address], [place]. tel:[phone] Referring Provider: Dinorah Gamble, [facility] [address], [place], [address]. tel:[phone] [facility] , [address], [place], [address], [place] tel:[phone] [facility] , Seronegative RA Mariluz White. [facility] , [facility] [address], [place], [address], [place]. tel:[phone] Referring Provider: Christopher Lentz, [facility] [address], [place], [address]. tel:[phone] Office/Outpa tient Visit, Est [facility] , [address], [place], [address], [place] tel:[phone] [facility] , Rheumatoid arthritis (chief complaint) Diabetes mellitus type 2Seronegativ e RAOsteopenia High risk medication monitoring 8 Reena Herndon. [facility] [address], [place], [address], [place]. tel:[phone] Referring Provider: Yanick Lentz, [facility] [address], [place], [address]. tel:[phone] [facility] , [address], [place], [address], [place] tel:[phone] [facility] , Seronegative RA November- Mariluz White. [facility] [address], [place], [address], [place]. tel:[phone] Referring Provider: Christopher Lentz, [facility] [address], [place], [address]. tel:[phone] Office/Outpa tient Visit, Est [facility] , [address], [place], [address], [place] tel:[phone] [facility] , Rheumatoid arthritis (chief complaint) Diabetes mellitus type 2Seronegativ e RABack painOsteopen iaHigh risk medication monitoring 8 Reena Herndon. [facility] [address], [place], [address], [place]. tel:[phone] Referring Provider: Yanick Lentz, [facility] [address], [place], [address]. tel:[phone] [facility] , [address], [place], [address], [place] tel:[phone] [facility] , Seronegative RA 8 Skemp Christopher. [facility] [address], [place], [address], [place]. tel:[phone] Referring Provider: Christopher Mcgraw A, [facility] [address], [place], [address]. tel:[phone] [facility] , [address], [place], [address], [place] tel:[phone] [facility] , Seronegative RA 8 Skemp Christopher. [facility] [address], [place], [address], [place]. tel:[phone] Referring Provider: Christopher Mcgraw A, [facility] [address], [place], [address]. tel:[phone] [facility] , [address], [place], [address], [place] tel:[phone] [facility] , No Information 7 Reena Herndon. [facility] [address], [place], [address], [place]. tel:[phone] Office/Outpa tient Visit, Est [facility] , [address], [place], [address], [place] tel:[phone] [facility] , Rheumatoid arthritis (chief complaint) Diabetes mellitus type 2Seronegativ e RAOsteopenia High risk medication monitoringBa ck pain [facility]. [facility] , [facility] [address], [place], [address], [place]. tel:[phone] Referring Provider: Yanick Lentz, [facility] [address], [place], [address]. tel:[phone] [facility] , [address], [place], [address], [place] tel:[phone] [facility] , No Information [facility]. [facility] , [facility] [address], [place], [address], [place]. tel:[phone] Referring Provider: Yanick Lentz, [facility] [address], [place], [address]. tel:[phone] [facility] , [address], [place], [address], [place] tel:[phone] [facility] , Osteopenia [facility]. [facility] [address], [place], [address], [place]. tel:[phone] Referring Provider: Yanick Lentz, [facility] [address], [place], [address]. tel:[phone] [facility] , [address], [place], [address], [place] tel:[phone] [facility] , Seronegative RA Apr- [facility]. [facility] [address], [place], [address], [place]. tel:[phone] Referring Provider: Yanick Lentz, [facility] [address], [place], [address]. tel:[phone] [facility] , [address], [place], [address], [place] tel:[phone] [facility] , Seronegative RA Reena Herndon. [facility] [address], [place], [address], [place]. tel:[phone] Referring Provider: Yanick Lentz, [facility] , [facility] [address], [place], [address]. tel:[phone] Office/Outpa tient Visit, Est [facility] , [address], [place], [address], [place] tel:[phone] [facility] , Rheumatoid arthritis (chief complaint) Diabetes mellitus type 2Seronegativ e RAOsteopenia High risk medication monitoring Reena Herndon. [facility] [address], [place], [address], [place]. tel:[phone] Referring Provider: Yanick Lentz, [facility] [address], [place], [address]. tel:[phone] [facility] , [address], [place], [address], [place] tel:[phone] [facility] , Seronegative RA Matthew Copeland. [facility] [address], [place], [address], [place]. tel:[phone] Referring Provider: Dinorah Gamble, [facility] [address], [place], [address]. tel:[phone] [facility] , [address], [place], [address], [place] tel:[phone] [facility] , Seronegative RA Oct-2 Matthew Copeland. [facility] [address], [place], [address], [place]. tel:[phone] Referring Provider: Dinorah Gamble, [facility] [address], [place], [address]. tel:[phone] Office/Outpa tient Visit, Est [facility] , [address], [place], [address], [place] tel:[phone] [facility] , Rheumatoid arthritis (chief complaint) Seronegative RAOsteopenia High risk medication monitoringDi abetes mellitus type 2 Sep- Reena Herndon. [facility] , [facility] [address], [place], [address], [place]. tel:[phone] Referring Provider: Yanick Lentz, [facility] [address], [place], [address]. tel:[phone] [facility] , [address], [place], [address], [place] tel:[phone] [facility] , Seronegative RA Jul- Reena Herndon. [facility] [address], [place], [address], [place]. tel:[phone] Referring Provider: Yanick Lentz, [facility] [address], [place], [address]. tel:[phone] [facility] , [address], [place], [address], [place] tel:[phone] [facility] , Seronegative RA Jun-[address] [facility]. [facility] , [facility] [address], [place], [address], [place]. tel:[phone] Referring Provider: Yanick Lentz, [facility] [address], [place], [address]. tel:[phone] Office/Outpa tient Visit, Est [facility] , [address], [place], [address], [place] tel:[phone] [facility] , Rheumatoid arthritis (chief complaint) Seronegative RAOsteopenia High risk medication monitoring [address] [facility]. [facility] [address], [place], [address], [place]. tel:[phone] Referring Provider: Yainck Lentz, [facility] , [facility] [address], [place], [address]. tel:[phone] [facility] , [address], [place], [address], [place] tel:[phone] [facility] , Seronegative RA Mar- [address] [facility]. [facility] , [facility] [address], [place], [address], [place]. tel:[phone] Referring Provider: Yanick Lentz, [facility] , [facility] [address], [place], [address]. tel:[phone] Office/Outpa tient Visit, Est [facility] , [address], [place], [address], [place] tel:[phone] [facility] , Rheumatoid arthritis (chief complaint) Seronegative RAOsteopenia High risk medication monitoring [address] [facility]. [facility] , [facility] [address], [place], [address], [place]. tel:[phone] Referring Provider: Yanick Lentz, [facility] , [facility] [address], [place], [address]. tel:[phone] [facility] , [address], [place], [address], [place] tel:[phone] [facility] , Seronegative RA [address] [facility]. [facility] [address], [place], [address], [place]. tel:[phone] Referring Provider: Yanick Lentz, [facility] , [facility] [address], [place], [address]. tel:[phone] [facility] , [address], [place], [address], [place] tel:[phone] [facility] , Seronegative RA [address] [facility]. [facility] [address], [place], [address], [place]. tel:[phone] Referring Provider: Yanick Lentz, [facility] , [facility] [address], [place], [address]. tel:[phone] Office/Outpa tient Visit, Est [facility] , [address], [place], [address], [place] tel:[phone] [facility] , Rheumatoid arthritis (chief complaint) Seronegative RAOsteopenia High risk medication monitoring 6 Reena Herndon. [facility] , [facility] [address], [place], [address], [place]. tel:[phone] Referring Provider: Yanick Lentz, [facility] , [facility] [address], [place], [address]. tel:[phone] [facility] , [address], [place], [address], [place] tel:[phone] [facility] , No Information 6 Reena Herndon. [facility] [address], [place], [address], [place]. tel:[phone] Referring Provider: Yanick Lentz, [facility] [address], [place], [address]. tel:[phone] [facility] , [address], [place], [address], [place] tel:[phone] [facility] , Seronegative RA 6 Reenacassidy Herndon. [facility] , [facility] [address], [place], [address], [place]. tel:[phone] Referring Provider: Yanick Lentz, [facility] , [facility] [address], [place], [address]. tel:[phone] [facility] , [address], [place], [address], [place] tel:[phone] [facility] , Seronegative RA Nov- 0-201 5 Skemp Christopher. [facility] , [facility] [address], [place], [address], [place]. tel:[phone] Referring Provider: Christopher Skemp A, [facility] [address], [place], [address]. tel:[phone] [facility] , [address], [place], [address], [place] tel:[phone] [facility] , Seronegative RA 7 5 Reena Herndon. [facility] , [facility] [address], [place], [address], [place]. tel:[phone] [facility] , [address], [place], [address], [place] tel:[phone] [facility] , Seronegative RA Mar- 5201 5 Reena Herndon. [facility] , [facility] [address], [place], [address], [place]. tel:[phone] Referring Provider: Yanick Lentz, [facility] , [facility] [address], [place], [address]. tel:[phone] [facility] , [address], [place], [address], [place] tel:[phone] [facility] , Seronegative RA 6201 5 Reena Herndon. [facility] , [facility] [address], [place], [address], [place]. tel:[phone] Office/Outpa tient Visit, Est [facility] , [address], [place], [address], [place] tel:[phone] [facility] , Rheumatoid arthritis (chief complaint) Rheumatoid ArthritisOst eopeniaThera peutic Drug Monitoring Reena Herndon. [facility] , [facility] [address], [place], [address], [place]. tel:[phone] Referring Provider: Yanick Lentz, [facility] , [facility] [address], [place], [address]. tel:[phone] [facility] , [address], [place], [address], [place] tel:[phone] [facility] , Rheumatoid Arthritis Reena Herndon. [facility] , [facility] [address], [place], [address], [place]. tel:[phone] Referring Provider: Yanick Lentz, [facility] , [facility] [address], [place], [address]. tel:[phone] [facility] , [address], [place], [address], [place] tel:[phone] [facility] , Rheumatoid Arthritis Reena Herndon. [facility] , [facility] [address], [place], [address], [place]. tel:[phone] Referring Provider: Yanick Lentz, [facility] , [facility] [address], [place], [address]. tel:[phone] Office/Outpa tient Visit, Est [facility] , [address], [place], [address], [place] tel:[phone] [facility] , Rheumatoid arthritis (chief complaint) Rheumatoid ArthritisThe rapeutic Drug MonitoringOs teopenia Reena Herndon. [facility] , [facility] [address], [place], [address], [place]. tel:[phone] Referring Provider: Yanick Lentz, [facility] , [facility] [address], [place], [address]. tel:[phone] [facility] , [address], [place], [address], [place] tel:[phone] [facility] , No Information Reena Herndon. [facility] [address], [place], [address], [place]. tel:[phone] Referring Provider: Yanick Lentz, [facility] , [facility] [address], [place], [address]. tel:[phone] [facility] , [address], [place], [address], [place] tel:[phone] [facility] , Rheumatoid Arthritis Reena Herndon. [facility] [address], [place], [address], [place]. tel:[phone] Referring Provider: Yanick Lentz, [facility] , [facility] [address], [place], [address]. tel:[phone] [facility] , [address], [place], [address], [place] tel:[phone] [facility] , Rheumatoid Arthritis 5 Reena Herndon. [facility] [address], [place], [address], [place]. tel:[phone] Office/Outpa tient Visit, Est [facility] , [address], [place], [address], [place] tel:[phone] [facility] , Rheumatoid Arthritis (chief complaint) Rheumatoid ArthritisDis order of bone and cartilage, unspecifiedT herapeutic Drug Monitoring Reena Herndon. [facility] [address], [place], [address], [place]. tel:[phone] Referring Provider: Yanick Lentz, [facility] , [facility] [address], [place], [address]. tel:[phone] [facility] , [address], [place], [address], [place] tel:[phone] [facility] , Rheumatoid Arthritis 5 Reena Herndon. [facility] [address], [place], [address], [place]. tel:[phone] Referring Provider: Yanick Lentz, [facility] [address], [place], [address]. tel:[phone] [facility] , [address], [place], [address], [place] tel:[phone] [facility] , Rheumatoid Arthritis 5 Reena Herndon. [facility] [address], [place], [address], [place]. tel:[phone] [facility] , [address], [place], [address], [place] tel:[phone] [facility] , Rheumatoid Arthritis 4 Reena Herndon. [facility] [address], [place], [address], [place]. tel:[phone] Referring Provider: Yanick Lentz, [facility] [address], [place], [address]. tel:[phone] [facility] , [address], [place], [address], [place] tel:[phone] [facility] , Rheumatoid Arthritis 4 Reena Herndon. [facility] [address], [place], [address], [place]. tel:[phone] [facility] , [address], [place], [address], [place] tel:[phone] [facility] , Rheumatoid Arthritis 4 Reena Herndon. [facility] [address], [place], [address], [place]. tel:[phone] Referring Provider: Yanick Lentz, [facility] [address], [place], [address]. tel:[phone] [facility] , [address], [place], [address], [place] tel:[phone] [facility] , Rheumatoid Arthritis 2 4 Reena Herndon. [facility] [address], [place], [address], [place]. tel:[phone] Office/Outpa tient Visit, Est [facility] , [address], [place], [address], [place] tel:[phone] [facility] , Rheumatoid Arthritis (chief complaint) Rheumatoid ArthritisThe rapeutic Drug MonitoringDi sorder of bone and cartilage, unspecifiedP lantar fascial fibromatosis 0 4 Reena Herndon. [facility] [address], [place], [address], [place]. tel:[phone] Referring Provider: Yanick Lentz, [facility] [address], [place], [address]. tel:[phone] [facility] , [address], [place], [address], [place] tel:[phone] [facility] , Rheumatoid Arthritis Feb- 4 Reena Herndon. [facility] [address], [place], [address], [place]. tel:[phone] Referring Provider: Yanick Lentz, [facility] [address], [place], [address]. tel:[phone] [facility] , [address], [place], [address], [place] tel:[phone] [facility] , Rheumatoid Arthritis 4 Reenacassidy Herndon. [facility] [address], [place], [address], [place]. tel:[phone] [facility] , [address] [address], [place], [address], [place] tel:[phone] [facility] , Rheumatoid Arthritis [address] [facility] [facility]. [facility] [address], [place], [address], [place]. tel:[phone] Referring Provider: Yanick Lentz, [facility] [address], [place], [address]. tel:[phone] [facility] , [address], [place], [address], [place] tel:[phone] [facility] , Rheumatoid Arthritis [address] [facility] [facility]. [facility] [address], [place], [address], [place]. tel:[phone] Office/Outpa tient Visit, Est [facility] , [address], [place], [address], [place] tel:[phone] [facility] , Rheumatoid Arthritis (chief complaint) Rheumatoid ArthritisDis order of bone and cartilage, unspecifiedT herapeutic Drug MonitoringDy suria [address] [facility] [address] [facility]. [facility] [address], [place], [address], [place]. tel:[phone] Referring Provider: Yanick Lentz, [facility] [address], [place], [address]. tel:[phone] [facility] , [address], [place], [address], [place] tel:[phone] [facility] , Rheumatoid Arthritis 4 [facility]. [facility] [address], [place], [address], [place]. tel:[phone] Referring Provider: Yanick Lentz, [facility] [address], [place], [address]. tel:[phone] [facility] , [address], [place], [address], [place] tel:[phone] [facility] , Monitor chronic high risk medications (chief complaint) No Information 4 [facility]. [facility] [address], [place], [address], [place]. tel:[phone] Referring Provider: Yanick Lentz, [facility] [address], [place], [address]. tel:[phone] [facility] , [address], [place], [address], [place] tel:[phone] [facility] , Rheumatoid Arthritis 4 Reenacassidy [place]don. [facility] [address], [place], [address], [place]. tel:[phone] [facility] , [address], [place], [address], [place] tel:[phone] [facility] , Rheumatoid Arthritis 4 Reena Yanick. [facility] [address], [place], [address], [place]. tel:[phone] Referring Provider: Yanick Lentz, [facility] [address], [place], [address]. tel:[phone] [facility] , [address], [place], [address], [place] tel:[phone] [facility] , Rheumatoid Arthritis 4 Reena Herndon. [facility] [address], [place], [address], [place]. tel:[phone] [facility] , [address], [place], [address], [place] [phone] [facility] , Rheumatoid Arthritis 4 Reen[facility]idy Herndon. [facility] [address], [place], [address], [place]. tel:[phone] [facility] , [address], [place], [address], [place] tel:[phone] [facility] , Rheumatoid Arthritis 3 [facility]don. [facility] [address], [place], [address], [place]. tel:[phone] Referring Provider: Yanick Lentz, [facility] [address], [place], [address]. tel:[phone] [facility] , [address], [place], [address], [place] [phone] [facility] , Rheumatoid Arthritis 3 Reena Herndon. [facility] [address], [place], [address], [place]. tel:[phone] [facility] , [address], [place], [address], [place] tel:[phone] [facility] , Rheumatoid Arthritis 3 [facility]. [facility] [address], [place], [address], [place]. tel:[phone] Office/Outpa tient Visit, Est [facility] , [address], [place], [address], [place] tel:[phone] [facility] , Rheumatoid Arthritis (chief complaint) Rheumatoid ArthritisDis order of bone and cartilage, unspecifiedT herapeutic Drug Monitoring [address] [facility]. [facility] [address], [place], [address], [place]. tel:[phone] Referring Provider: Yanick Lentz, [facility] [address], [place], [address]. tel:[phone] [facility] , [address], [place], [address], [place] tel:[phone] [facility] , Rheumatoid Arthritis [address] [facility] [facility]. [facility] [address], [place], [address], [place]. tel:[phone] Referring Provider: Yanick Lentz, [facility] [address], [place], [address]. tel:[phone] [facility] , [address], [place], [address], [place] tel:[phone] [facility] , Rheumatoid Arthritis 3 Reena [facility]. [facility] [address], [place], [address], [place]. tel:[phone] [facility] , [address], [place], [address], [place] tel:[phone] [facility] , Rheumatoid Arthritis Reena [facility]. [facility] [address], [place], [address], [place]. tel:[phone] Referring Provider: Yanick Lentz, [facility] [address], [place], [address]. tel:[phone] [facility] , [address], [place], [address], [place] tel:[phone] [facility] , Rheumatoid Arthritis Reena Herndon. [facility] [address], [place], [address], [place]. tel:[phone] Office/Outpa tient Visit, Est [facility] , [address], [place], [address], [place] tel:[phone] [facility] , Rheumatoid Arthritis (chief complaint) Rheumatoid ArthritisDis order of bone and cartilage, unspecifiedT herapeutic Drug Monitoring 3 Reena [place]. [facility] [address], [place], [address], [place]. tel:[phone] Referring Provider: Yanick Lentz, [facility] [address], [place], [address]. tel:[phone] [facility] , [address], [place], [address], [place] tel:[phone] [facility] , Rheumatoid Arthritis 7 3 Reena [facility]. [facility] [address], [place], [address], [place]. tel:[phone] Referring Provider: Yanick Lentz, [facility] [address], [place], [address]. tel:[phone] [facility] , [address], [place], [address], [place] tel:[phone] [facility] , Rheumatoid Arthritis 0 3 Reena [place]. [facility] [address], [place], [address], [place]. tel:[phone] [facility] , [address], [place], [address], [place] tel:[phone] [facility] , No Information 2 3 Reena [place]. [facility] [address], [place], [address], [place]. tel:[phone] Referring Provider: Yanick Lentz, [facility] [address], [place], [address]. tel:[phone] Office/Outpa tient Visit, Est [facility] , [address], [place], [address], [place] tel:[phone] [facility] , Rheumatoid Arthritis (chief complaint) Rheumatoid ArthritisDis order of bone and cartilage, unspecifiedT herapeutic Drug MonitoringDi sorders of bursae and tendons in shoulder region, unspecified Apr-2 3 [facility]. [facility] [address], [place], [address], [place]. tel:[phone] Referring Provider: Yanick Lentz, [facility] [address], [place], [address]. tel:[phone] [facility] , [address], [place], [address], [place] tel:[phone] [facility] , Rheumatoid Arthritis Apr-0 3 Re[facility]. [facility] [address], [place], [address], [place]. tel:[phone] Referring Provider: Yanick Lentz, [facility] [address], [place], [address]. tel:[phone] [facility] , [address], [place], [address], [place] tel:[phone] [facility] , Rheumatoid Arthritis Sep- 3 Re[facility]. [facility] [address], [place], [address], [place]. tel:[phone] Referring Provider: Yanick Lentz, [facility] [address], [place], [address]. tel:[phone] [facility] , [address], [place], [address], [place] tel:[phone] [facility] , Rheumatoid Arthritis 3 Reena [place]. [facility] [address], [place], [address], [place]. tel:[phone] Office/Outpa tient Visit, Est [facility] , [address], [place], [address], [place] tel:[phone] [facility] , Rheumatoid Arthritis (chief complaint) Rheumatoid ArthritisThe rapeutic Drug MonitoringDi sorders of bursae and tendons in shoulder region, unspecifiedO ther bursitis disordersDis order of bone and cartilage, unspecified 3 Reena [place]. [facility] [address], [place], [address], [place]. tel:[phone] Referring Provider: Yanick Lentz, [facility] [address], [place], [address]. tel:[phone] [facility] , [address], [place], [address], [place] tel:[phone] [facility] , No Information 3 Reena Yanick. [facility] [address], [place], [address], [place]. tel:[phone] Referring Provider: Yanick Lentz, [facility] [address], [place], [address]. tel:[phone] Office/Outpa tient Visit, Est [facility] , [address], [place], [address], [place] tel:[phone] [facility] , Rheumatoid Arthritis (chief complaint) Rheumatoid ArthritisOth er specified counselingTh erapeutic Drug MonitoringDi sorders of bursae and tendons in shoulder region, unspecified 0201 2 Reena [place]don. [facility] [address], [place], [address], [place]. tel:[phone] Referring Provider: Yanick Lentz, [facility] , [facility] [address], [place], [address]. tel:[phone] Family History Family Member Type Diagnosis Age At Onset Problem (finding) No family hist ory of Rheumatoid arthritis Payers Payer name Insurance type Covered constitution [...]
--- OUTSIDE RECORDS SUMMARY | 2024-03-17 08:28 | XMS_ITS | Referral Summary ---
Author Organization [facility] Address [address] [place] [address]. [place] [address] Care Team Providers Care Financial Service Representative Name Role Phone Clinic, [facility] Primary Care Provider + Allergies Active Allergy Reactions Criticality Noted Date Comments Doxycycline Rash Medium 02/09/2012 Also had significant sun exposure at the same time. Hydrocodone-Acetaminophen 12/20/2008 Other reaction(s): Vomiting Penicillins 11/09/2013 Other reaction(s): *Unknown - Childhood Rxn Medications Medication Sig Dispensed Refills Start Date End Date Status inFLIXimab (REMICADE) 100 MG injection 08/23/2016 Active hydroxychloroquine (PLAQUENIL) 200 MG tablet Take 200 mg by mouth 01/25/2012 Active oxyCODONE (OXY-IR) 5 MG capsule Take 5-10 mg by mouth 06/26/2017 Active omeprazole (PRILOSEC) 40 MG capsule Take 40 mg by mouth 04/23/2017 Active folic acid (FOLVITE) 1 MG tablet Take 1 mg by mouth 12/20/2009 Active metFORMIN (GLUCOPHAGE) 1000 MG tablet Take 1,000 mg by mouth 06/21/2017 Active methotrexate 2.5 MG tablet CHEMO Take 22.5 mg by mouth 01/17/2016 Active gabapentin (NEURONTIN) 300 MG capsule Take 300 mg by mouth 06/18/2017 Active ibuprofen (ADVIL/MOTRIN) 200 MG tablet Take 200 mg by mouth 12/22/2016 Active blood glucose monitoring (ONE TOUCH ULTRA 2) meter device kit TEST ONCE DAILY 10/18/2015 Active simvastatin (ZOCOR) 40 MG tablet Take 40 mg by mouth 11/28/2016 Active SUMAtriptan (IMITREX) 100 MG tablet 01/13/2017 Active predniSONE (DELTASONE) 5 MG tablet TAKE ONE TABLET BY MOUTH EVERY MORNING WITH FOOD 0 05/23/2017 Active Active Problems Problem Noted Date Diagnosed Date DDD (degenerative disc disease), lumbar 07/01/20 17 Foraminal stenosis of lumbar region 07/01/2017 Social History Tobacco Use Types Packs/Day Years Used Date Smoking Tobacco: Former Cigarettes Smokeless Tobacco: Never Adolescent Education Answer Date Record ed Getting School Help Needed Not on file 04/05 Sex and Gender Information Value Date Recorded Sex Assigned at Not on file Gender Identity Not on file Sexual Orientation Not on file Last Filed Vital Signs Vital Sign Reading Time Taken Comments Blood Pressure 152/84 09/28/2020 2:48 PM CDT Pulse 60 09/28/2020 2:48 PM CDT Temperature 36.4 ??C (97.5 ??F) 05/25/2019 2:34 PM CS T Respiratory Rate 16 05/27/2019 9:38 AM REEL WINDER Oxygen Saturation 95% 05/27/2019 9:38 AM REEL WINDER Inhaled Oxygen Concentration - - Weight 93 kg (205 lb) 05/25/2019 2:34 PM REEL WINDER Height 167.6 cm (5' 6) 05/25/2019 2:34 PM REEL WINDER Body Mass Index 33.09 05/25/2019 2:34 PM REEL WINDER Plan of Treatment Not on file Care Teams Financial Service Representative Relationship Specialty Start Date End Date Clinic, [facility] Nieto [address] [facility] [place] [id number] PCP - General 07/01/17
--- OUTSIDE RECORDS SUMMARY | 2024-03-17 08:28 | XMS_ITS | Clinical Summary ---
Author Organization [facility] Address [place], [place] [address] Care Team Providers Care Cardiac Nurse Specialist Name Role Phone Isreal Veronica MD Primary Care Provider + Allergies Active Allergy Reactions Criticality Noted Date Comments Doxycycline Rash Medium 02/09/2012 Also had significant sun exposure at the same time. Penicillins *Unknown - Childhood Rxn 11/09/2013 Medications Medication Sig Dispensed Refills Start Date End Date Status lancetsIndications :Diabetes mellitus without complication (HC) Test 1 times per day. 100 Each 3 05/02/2018 Active acetaminophen (TYLENOL) 325 mg tablet Take 650 mg by mouth 2 times daily. Max acetaminophen dose: 4000mg in 24 hrs. Active blood sugar diagnostic stripIndications:D iabetes mellitus without complication (HC) Prodigy test strips, Dispense item covered by pt ins. Test one time per day. 100 Strip 3 03/01/2020 Active blood-glucose meter (ONETOUCH ULTRA2 METER)Indications: Diabetes mellitus without complication (HC) TEST ONCE DAILY 1 Kit 03/04/2020 Active blood-glucose meterIndications:D iabetes mellitus without complication (HC) Dispense meter, test strips, lancets covered by pt ins. E11.65 NIDDM type II, uncontrolled - Test 2 times/day. Reason: High A1C 1 Device 03/07/2020 Active diazePAM (VALIUM) 5 mg tabletIndications: Claustrophobia Take 1 tab 30 minutes prior to procedure/imaging. 1 tablet 09/13/2020 Active oxyCODONE (ROXICODONE) 5 mg immediate release tabletIndications: Degenerative disc disease, lumbar Take 1 Tablet (5 mg) by mouth every 6 hours if needed. 30 tablet. 10/06/2020 Active predniSONE (DELTASONE) 1 mg tabletIndications: Rheumatoid arthritis, seropositive (HC) TAKE ONE TABLET BY MOUTH TWICE A DAY WITH MEALS 60 Tablet 5 10/31/2020 Active meloxicam 15 mg tabletIndications: Radicular pain in left arm TAKE ONE TABLET BY MOUTH EVERY DAY 90 Tablet 2 12/13/2020 Active loratadine (CLARITIN) 10 mg tabletIndications: Insect bite, unspecified site, initial encounter TAKE ONE TABLET BY MOUTH EVERY DAY 90 Tablet 1 12/23/2020 Active metFORMIN (GLUCOPHAGE) 1,000 mg tabletIndications: Controlled type 2 diabetes mellitus with complication, without long-term current use of insulin (HC) TAKE ONE TABLET BY MOUTH TWICE A DAY WITH MEALS 60 Tablet 02/28/2021 Active glimepiride (AMARYL) 2 mg tabletIndications: Controlled type 2 diabetes mellitus with complication, without long-term current use of insulin (HC) TAKE ONE TABLET BY MOUTH EVERY MORNING AND TAKE ONE TABLET BY MOUTH EVERY EVENING 60 Tablet 2 04/10/2021 Active SUMAtriptan (IMITREX) 100 mg tabletIndications: Migraine without status migrainosus, not intractable, unspecified migraine type TAKE ONE TABLET BY MOUTH TWICE DAILY NEEDED FOR MIGRAINE. TAKE AT MINIMUM OF 2 HOURS APART- MAX DOSE 200MG / 24HRS 20 Tablet 2 05/02/2021 Active celecoxib (CELEBREX) 200 mg capsule Take 200 mg by mouth. 05/12/2021 Active benzonatate (TESSALON) 100 mg capsuleIndications :Lower respiratory tract infection Take 1 Capsule (100 mg) by mouth 3 times daily if needed for Cough. 21 Capsule 05/30/2021 Active azithromycin (ZITHROMAX) 250 mg tabletIndications: Lower respiratory tract infection Take 500 mg (2 tabs) by mouth on day 1, then 250 mg (1 tab) daily for days 2-5. 25 Tablet 05/30/2021 Active predniSONE (DELTASONE) 20 mg tabletIndications: Lower respiratory tract infection Take 1 Tablet (20 mg) by mouth once daily with a meal. 5 Tablet 05/30/2021 Active albuterol HFA (PRO-AIR; VENTOLIN; PROVENTIL) 90 mcg/actuation inhalerIndications :Lower respiratory tract infection Inhale 1-2 Puffs by mouth every 4 hours if needed for Shortness of Breath 1st choice or Wheezing 1st choice. 1 Each 05/30/2021 Active gabapentin (NEURONTIN) 600 mg tabletIndications: Acute bilateral low back pain with bilateral sciatica TAKE ONE TABLET BY MOUTH EVERY MORNING, TAKE ONE TABLET IN THE AFTERNOON, AND TAKE TWO TABLETS AT BEDTIME 360 Tablet 12/01/2021 Active omeprazole (PRILOSEC) 40 mg Delayed-Release capsuleIndications :Gastroesophageal reflux disease without esophagitis TAKE ONE CAPSULE BY MOUTH EVERY DAY 90 Capsule 03/02/2022 Active folic acid 1 mg tabletIndications: Rheumatoid arthritis, seropositive (HC) TAKE ONE TABLET BY MOUTH EVERY DAY 90 Tablet 03/26/2022 Active Active Problems Problem Noted Date Diagnosed Date S/P excision of ganglion cyst 08/25/2019 Ganglion of wrist 08/25/2019 Controlled type 2 diabetes m ellitus with complication, without long-term current use of insulin 07/29/2017 Hyperlipidemia 02/16/2011 Migraine, unspecified, witho ut mention of intractable migraine without mention of status migrainosus 07/20/2008 GERD (gastroesophageal reflux disease) 9 Rheumatoid arthritis(714.0) Family hx of colon cancer Ganglion cyst of volar aspect of right wrist Resolved Problems Problem Noted Date Diagnosed Date Resolved Date Diabetes mellitus type II 09/20/2009 Overview: a system change updated this record. This will not affect patient care or billing. This comment can be deleted. Immunizations Name Administration Dates Next Due Tdap 01/18/2012 Tuberculin (PPD) 01/07/2010 Family History Medical History Relation Name Comments Liver cancer Brother Lung cancer Brother Cancer-colon Mother age 68 Diabetes Mother Relation Name Status Comments Brother Alive x5 Daughter Alive Father Maternal Grandfather Maternal Grandmother Mother Paternal Grandfather Paternal Grandmother Sister Alive x6 Son Alive Social History Tobacco Use Types Packs/Day Years Used Date Smoking Tobacco: Former Cigarettes 0.5 30 1 974 - 2004 Smokeless Tobacco: Never Tobacco Cessation:Counseling Given: Yes Alcohol Use Standard Drinks/Week Comments No 0 (1 standard drink = 0.6 oz pur e alcohol) PHQ-2 Answer Date Recorded PHQ-2 TOTAL SCORE 0 03/01/2020 Social Connections Answer Date Recorded Frequency of Communication with Friends and Fami ly Not on file 07/15/2021 Financial Resource Strain Answer Date R ecorded Difficulty of Paying Living Expenses Not on file 07/15/2021 Difficulty of Paying Living Expenses Not on file 07/15/2021 Sex and Gender Information Value Date Recorded Sex Assigned at Not on file Gender Identity Not on file Sexual Orientation Not on file Obstetrics History Last Filed Vital Signs Vital Sign Reading Time Taken Comments Blood Pressure 132/68 05/30/2022 11:40 AM APPLICATIONS INTERN Pulse 71 05/30/2022 11:40 AM APPLICATIONS INTERN Temperature 36.3 ??C (97.3 ??F) 05/30/2021 2:32 PM CS T Respiratory Rate 16 05/30/2022 11:40 AM APPLICATIONS INTERN Oxygen Saturation 97% 05/30/2022 11:40 AM APPLICATIONS INTERN Inhaled Oxygen Concentration - - Weight 95.3 kg (210 lb 1.6 oz) 05/30/2022 11:40 AM APPLICATIONS INTERN Height 169.2 cm (5' 6.6) 10/06/2020 8:32 AM CDT Body Mass Index 33.3 10/06/2020 8:32 AM CDT Plan of Treatment Health Maintenance Due Date Last Done Comments Pneumococcal series for age 65+ (1 of 2 - PCV) 1959 Zoster (shingles) series for age 50+ (1 of 2) 2003 Depression screening for age 12+ 03/04/2021 03/04/2020, 03/01/2020, 03/01/2020, Additional history exists BMI (ht and wt on same day) for age 18+ 10/06/2021 10/06/2020, 08/19/2020, 07/28/2020, Additional history exists Tetanus booster 01/17/2022 01/18/2012 COVID-19 vaccine series ( season) 2024 Lipids for age 45-75 10/06/2025 10/06/2020, 03/01/2020, 08/06/2019, Additional history exists Colonoscopy through age 75 08/08/2028 08/08/2018 Tdap Completed 01/18/2012 Hepatitis C screening for ag e 18-79 Completed 03/01/2020 Procedures Procedure Name Priority Date/Time Associated Diagnosis Comments LIPID PANEL W REFLEX MEASURED LDL Routine 10/06/2020 9:15 AM CDT Hyperlipidemia, unspecified hyperlipidemia type ANTI HCV Routine 03/01/2020 8:35 AM CDT Need for hepatitis C screening test COLONOSCOPY 08/08/2018 11:56 AM APPLICATIONS INTERN from Last 3 Months or Most Recently Relevant to Health Maintenance Results * (ABNORMAL) LIPID PANEL W REFLEX MEASURED LDL (10/06/2020 9:15 AM CDT) CHOLESTEROL,TOTAL 190 100 - 199 mg/dL 10/06/2020 9:58 AM CDT [facility] TRIGLYCERIDES 226(H) <150 mg/dL 10/06/2020 9:58 AM CDT [facility] HDL CHOLESTEROL 47 >40 mg/dL 9:58 AM CDT [facility] NON-HDL CHOLESTEROL 143 <145 mg/dl 10/06/2020 9:58 AM CDT [facility] CHOL/HDL RATIO 4.04 <4.50 10/06/2020 9:58 AM CDT [facility] LDL CHOLESTEROL 98 <=130 mg/dL 10/06/2020 9:58 AM CDT [facility] PROVIDER ORDERED STATUS RANDOM 10/06/2020 9:58 AM CDT [facility] Blood BLOOD SPECIMEN / Unknown Venipuncture / Unknown 10/06/2020 9:15 AM CDT 10/06/2020 9:17 AM CDT Daphney Jacobs NP CHEMISTRY [facility] [address] [place] [address] * ANTI HCV (03/01/2020 8:35 AM CDT) HEPATITIS C ANTIBODY Non-React joanne Non-React joanne 03/01/2020 4:57 PM CDT [facility] Comment:Antibodies to HCV no t detected; does not exclude the possibility of exposure to HCV. Blood BLOOD SPECIMEN / Unknown Venipuncture / Unknown 03/01/2020 8:35 AM CDT 03/01/2020 8:36 AM CDT Daphney Jacobs FAMILY AND DIVORCE LEGAL ASSISTANT SEND OUTS [facility] [address] [place] [address], [place] * COLONOSCOPY (08/08/2018 11:56 AM APPLICATIONS INTERN) 08/08/2018 11:5 6 AM APPLICATIONS INTERN Narrative Transcriptions Arlyn Chilel DO - 08/11/2018 10:31 AM CST Patient Name: Francesco Galarza Procedure Date: 08/08/2018 Gender: Male Date of : 1955 Admit Type: Ambulatory Procedure: Colonoscopy Proceduralist: Arlyn Chilel MD [facility] Indications/Pre-Op Diagnosis: Family history of colon cancer in a first-degree relative, Positive fecal immunochemical test Medications: Propofol per Anesthesia Procedure Description: The patient had risks, benefits and alternatives explained to andgave informed consent. The patient had a stable cardiopulmonary status and judged an adequate candidate for conscious sedation. The colonoscope was passed through the anus and advanced to thececum, identified by appendiceal orifice and ileocecal valve. Thecolonoscopy was performed without difficulty. The patient tolerated the procedure well. The quality of the bowel preparation was good. The ileocecal valve, appendiceal orifice, and rectum were photographed. Complications: No immediate complications. Estimated Blood Loss & Specimen: Estimated blood loss: none. Specimen collected - None Findings: Non-bleeding internal hemorrhoids were found during retroflexion. The hemorrhoids were Grade III (internal hemorrhoids that prolapse but require manual reduction). The exam was otherwise without abnormality. Impressions/Post-Op Diagnosis: - Non-bleeding internal hemorrhoids. - The examination was otherwise normal. - No specimens collected. Recommendation: - Discharge patient to home. - Patient has a contact number available for emergencies. The signsand symptoms of potential delayed complications were discussed with the patient. Return to normal activities tomorrow. Written discharge instructions were provided to the patient. - High fiber diet. - Repeat colonoscopy in 5 years for screening purposes. Moderate Sedation: Moderate (conscious) sedation was personally administered by an anesthesia professional. The following parameters were monitored:oxygen saturation, heart rate, blood pressure, and response to care. Arlyn Chilel MD 08/11/2018 10:31:30 AM This report has been signed electronically. Note Initiated On: 08/08/2018 11:56 AM Arlyn Chilel DO PROCEDURE ORD from Last 3 Months or Most Recently Relevant to Health Maintenance Advance Directives * Full Code (Latest Code Status on File) Date Activated Date Inactivated Comments 08/10/2019 8:53 AM 08/10/2019 3:41 PM * Full Code Date Activated Date Inactivated Comments 08/08/2018 11:47 AM 08/08/2018 3:38 PM Question Answer Comments Code Status Discussion: Discussed Care Teams Cardiac Nurse Specialist Relationship Specialty Start Date End Date Isreal Veronica MD [address] [place] [id number] PCP - General Family Practice 01/04/22
--- OUTSIDE RECORDS SUMMARY | 2024-03-17 08:28 | XMS_ITS | Clinical Summary ---
Author Organization [facility] Address [address] [place] [address]. [place] [address] Care Team Providers Care Floor Grinder Name Role Phone Clinic, Kayce Vivek Primary Care Provider + Allergies Active Allergy [...] 17 Foraminal stenosis of lumbar region 07/01/2017 Family History Medical History Relation Comments Other Cancer Brother Diabetes Mother Other Cancer Mother Relation Status Comments Brother Mother Social History Tobacco Use Types Packs/Day Years [...] T Respiratory Rate 16 05/27/2019 9:38 AM LOG PREPARER Oxygen Saturation 95% 05/27/2019 9:38 AM LOG PREPARER Inhaled Oxygen Concentration - - Weight 93 kg (205 lb) 05/25/2019 2:34 PM LOG PREPARER Height 167.6 cm (5' 6) 05/25/2019 2:34 PM LOG PREPARER Body Mass Index 33.09 05/25/2019 2:34 PM LOG PREPARER Plan of Treatment Not on file Care Teams Floor Grinder Relationship Specialty Start Date End Date Clinic, Kayce Doyle [address] [place] [address] Avjhoana. [place] Doyle [address] PCP - General 07/01/17
== END 2024-03-17 08:25 | disposition home or self-care (01) ==
PROVIDERS: PCP Family Medicine; Visit Provider Family Medicine
DX: E11.9 Type 2 diabetes mellitus without complications (principal); E78.2 Mixed hyperlipidemia; M06.9 Rheumatoid arthritis, unspecified; Z79.4 Long term (current) use of insulin; Z12.5 Encounter for screening for malignant neoplasm of prostate
CPT/HCPCS: 80048; 80061; 84460; G0103

== ENCOUNTER 2024-03-26 07:05 | Outpatient (CLI) | payer OTHER, SELFPAY ==
--- OUTSIDE RECORDS SUMMARY | 2024-03-26 07:07 | XMS_ITS | Continuity of Care Document ---
Author Organization [facility] Address [address] [place] [address] Phone Care Team Providers Care Guest Experience Specialist Name Role Phone River BARRAGAN, PhD, Michael [...] Copied on Encounter [facility], [address], [place], [id number], tel:[phone] [facility] No Information River Rodriguez. [facility], [address], [place], [address], [place]. [phone] OFFICE/OUTPAT IENT VISIT EST Phone [facility], [address], [place], [place], [id number], [place] tel:[phone] [facility] No Information River Rodriguez. [facility], [address], [place], [address], [place]. [phone] Referring Provider: Daphney Abbott, [address], [address]. tel:[phone] Office/Outpat ient Visit,Est, Low [facility], [address], [place], [place], [id number], [place] tel:[phone] [facility] No Information River Rodriguez. [facility], [address], [place], [address], [place]. [phone] Referring Provider: Daphney Abbott, [address], [address]. tel:[phone] Office/Outpat ient Visit,Est, Mod [facility], [address], [place], [place], [id number], [place] tel:[phone] [facility] Spinal stenosis, lumbar region with neurogenic claudication River Rodriguez. [facility], [address], [place], [address], [place]. tel:[phone] Referring Provider: Daphney Abbott, [address], [address]. tel:[phone] Office/Outpat ient Visit,Est, High [facility], [address], [place], [id number], [place] tel:[phone] [facility] Spinal stenosis, lumbar region with neurogenic claudication River Rodriguez. [facility], [address], [place], [address], [place]. tel:[phone] Referring Provider: Daphney Abbott, [employer] [address] [place] [address], [address]. tel:[phone] [facility], [address], [facility] [place] [id number], [place] tel:[phone] [facility] [place] Cervicalgia River Rodriguez. [facility] [place], [address], [place], [address], [place]. tel:[phone] Family History Family Member Type Diagnosis Age At Onset No Information Payers Payer name Insurance type Covered green party ID Authoriza tion(s) No Information Social [...]
--- OUTSIDE RECORDS SUMMARY | 2024-03-26 07:07 | XMS_ITS ---
Author Organization [facility] Address [address] [place] [address] Care Team Providers Care Servicenow Administrator Name Role Phone Unavailable Unavailable Unavailable Surgery Details Not on file Complications Check Surgery Details section. Procedure Estimated Blood Loss Check Surgery Details section. Procedure Findings Check Surgery Details section. Procedure Specimens Taken Check Surgery Details section.
--- OUTSIDE RECORDS SUMMARY | 2024-03-26 07:07 | XMS_ITS | Clinical Summary ---
Author Organization [facility] Address [address] [place] [address] Care Team Providers Care Principal Security Architect Name Role Phone Elsewhere, Pcp Primary Care Provider Unavailabl e Source Comments Patient records contain information from all sites at [facility]. For routine questions regarding patient records, call [phone] during business hours, M-F 8:00 AM - 5:00 PM Central Time. Record requests for emergency care only can be directed to [phone] at any time.[facility] Allergies No known active allergies Medications [...] age to complete this topic Care Teams Principal Security Architect Relationship Specialty Start Date End Date Elsewhere, Pcp PCP - General Internal Medicine 12/13/22
--- OUTSIDE RECORDS SUMMARY | 2024-03-26 07:07 | XMS_ITS | Referral Summary ---
Author Organization [facility] Address [address] [place] [address] Care Team Providers Care Insurance Sales Agent Name Role Phone Elsewhere, Pcp Primary Care Provider Unavailabl e Source Comments Patient records contain information from all sites at [facility]. For routine questions regarding patient records, call [phone] during business hours, M-F 8:00 AM - 5:00 PM Central Time. Record requests for emergency care only can be directed to [phone] at any time.[facility] Allergies No known active allergies Medications Medication [...] of Treatment Not on file Care Teams Insurance Sales Agent Relationship Specialty Start Date End Date Elsewhere, Pcp PCP - General Internal Medicine 12/13/22
--- OUTSIDE RECORDS SUMMARY | 2024-03-26 07:08 | XMS_ITS | Continuity of Care Document ---
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 [address], [address], [place], [address], [place]. tel:[phone] [facility] , [address], [place], [address], [place] tel:[phone] [facility] , No Information 9 Reena Herndon. [facility] [address], [place], [address], [place]. tel:[phone] [facility] , [address], [place], [address], [place] tel:[phone] [facility] , No Information 3 0-201 9 Reenavern Herndon. [facility] [address], [place], [address], [place]. tel:[phone] [facility] , [address], [place], [address], [place] tel:[phone] [facility] , No Information 2201 9 Reenavern Herndon. [facility] [address], [place], [address], [place]. tel:[phone] Office/Outpa tient Visit, Est [facility] , [address], [place], [address], [place] tel:[phone] [facility] , Rheumatoid arthritis (chief complaint) Diabetes mellitus type 2Seronegativ e RAOsteopenia High risk medication monitoring Reena Herndon. [facility] [address], [place], [address], [place]. tel:[phone] Referring Provider: Yanick Lentz, [facility] [address], [place], [address]. tel:[phone] [facility] , [address], [place], [address], [place] tel:[phone] [facility] , No Information Matthew Copeland. [facility] [address], [place], [address], [place]. tel:[phone] Referring Provider: Dinorah Gamble, [facility] [address], [place], [address]. tel:[phone] [facility] , [address], [place], [address], [place] tel:[phone] [facility] , Seronegative RA Mariluz White. [facility] [address], [place], [address], [place]. tel:[phone] Referring Provider: Christopher Lentz, [facility] [address], [place], [address]. tel:[phone] Office/Outpa tient Visit, Est [facility] , [address], [place], [address], [place] tel:[phone] [facility] , Rheumatoid arthritis (chief complaint) Diabetes mellitus type 2Seronegativ e RAOsteopenia High risk medication monitoring 8 Reena Herndon. [facility] [address], [place], [address], [place]. tel:[phone] Referring Provider: Yanick Lentz, [facility] [address], [place], [address]. tel:[phone] [facility] , [address], [place], [address], [place] tel:[phone] [facility] , Seronegative RA November- Mariluz White. [facility] [address], [place], [address], [place]. tel:[phone] Referring Provider: Christopher Lentz, [facility] [address], [place], [address]. tel:[phone] Office/Outpa tient Visit, Est [facility] , [address], [place], [address], [place] tel:[phone] [facility] , Rheumatoid arthritis (chief complaint) Diabetes mellitus type 2Seronegativ e RABack painOsteopen iaHigh risk medication monitoring 8 Reena Herndon. [facility] [address], [place], [address], [place]. tel:[phone] Referring Provider: Yanick Lentz, [facility] [address], [place], [address]. tel:[phone] [facility] , [address], [place], [address], [place] tel:[phone] [facility] , Seronegative RA 8 Skemp Christopher. [facility] [address], [place], [address], [place]. tel:[phone] Referring Provider: Christopher Mcgraw A, [facility] [address], [place], [address]. tel:[phone] [facility] , [address], [place], [address], [place] tel:[phone] [facility] , Seronegative RA 8 Skemp Christopher. [facility] [address], [place], [address], [place]. tel:[phone] Referring Provider: Christopher Mcgraw A, [facility] [address], [place], [address]. tel:[phone] [facility] , [address], [place], [address], [place] tel:[phone] [facility] , No Information 7 Reena Herndon. [facility] [address], [place], [address], [place]. tel:[phone] Office/Outpa tient Visit, Est [facility] , [address], [place], [address], [place] tel:[phone] [facility] , Rheumatoid arthritis (chief complaint) Diabetes mellitus type 2Seronegativ e RAOsteopenia High risk medication monitoringBa ck pain [facility]. [facility] [address], [place], [address], [place]. tel:[phone] Referring Provider: Yanick Lentz, [facility] [address], [place], [address]. tel:[phone] [facility] , [address], [place], [address], [place] tel:[phone] [facility] , No Information [facility] [place]. [facility] [address], [place], [address], [place]. tel:[phone] Referring Provider: Yanick Lentz, [facility] [address], [place], [address]. tel:[phone] [facility] , [address], [place], [address], [place] tel:[phone] [facility] , Osteopenia [facility] [place]. [facility] [address], [place], [address], [place]. tel:[phone] Referring Provider: Yanick Lentz, [facility] [address], [place], [address]. tel:[phone] [facility] , [address], [place], [address], [place] tel:[phone] [facility] , Seronegative RA Apr- [facility] [place]. [facility] [address], [place], [address], [place]. tel:[phone] Referring Provider: Yanick Lentz, [facility] [address], [place], [address]. tel:[phone] [facility] , [address], [place], [address], [place] tel:[phone] [facility] , Seronegative RA Reena Herndon. [facility] [address], [place], [address], [place]. tel:[phone] Referring Provider: Yanick Lentz, [facility] [address], [place], [address]. tel:[phone] Office/Outpa tient Visit, Est [facility] , [address], [place], [address], [place] tel:[phone] [facility] , Rheumatoid arthritis (chief complaint) Diabetes mellitus type 2Seronegativ e RAOsteopenia High risk medication monitoring Reena Herndon. [facility] [address], [place], [address], [place]. tel:[phone] Referring Provider: Yanick Lentz, [facility] [address], [place], [address]. tel:[phone] [facility] , [address], [place], [address], [place] tel:[phone] [facility] , Seronegative RA Matthew Copeland. [facility] [address], [place], [address], [place]. tel:[phone] Referring Provider: Dinorah Gamble, [facility] [address], [place], [address]. tel:[phone] [facility] , [address], [place], [address], [place] tel:[phone] [facility] , Seronegative RA Oct-2 Matthew Copeland. [facility] [address], [place], [address], [place]. tel:[phone] Referring Provider: Dinorah Gamble, [facility] [address], [place], [address]. tel:[phone] Office/Outpa tient Visit, Est [facility] , [address], [place], [address], [place] tel:[phone] [facility] , Rheumatoid arthritis (chief complaint) Seronegative RAOsteopenia High risk medication monitoringDi abetes mellitus type 2 Sep- Reena Herndon. [facility] , [facility] [address], [place], [address], [place]. tel:[phone] Referring Provider: Yanick Lentz, [facility] [address], [place], [address]. tel:[phone] [facility] , [address], [place], [address], [place] tel:[phone] [facility] , Seronegative RA Jul- Reena Herndon. [facility] [address], [place], [address], [place]. tel:[phone] Referring Provider: Yanick Lentz, [facility] [address], [place], [address]. [phone] [facility] , [address], [place], [address], [place] tel:[phone] [facility] , Seronegative RA Jun-0 6 [facility] [place]. [facility] [address], [place], [address], [place]. tel:[phone] Referring Provider: Yanick Lentz, [facility] [address], [place], [address]. tel:[phone] Office/Outpa tient Visit, Est [facility] , [address], [place], [address], [place] tel:[phone] [facility] , Rheumatoid arthritis (chief complaint) Seronegative RAOsteopenia High risk medication monitoring 6 [facility] [place]. [facility] , [facility] [address], [place], [address], [place]. tel:[phone] Referring Provider: Yanick Lentz, [facility] [address], [place], [address]. tel:[phone] [facility] , [address], [place], [address], [place] tel:[phone] [facility] , Seronegative RA Mar- 6 [facility] [place]. [facility] [address], [place], [address], [place]. tel:[phone] Referring Provider: Yanick Lentz, [facility] [address], [place], [address]. tel:[phone] Office/Outpa tient Visit, Est [facility] , [address], [place], [address], [place] tel:[phone] [facility] , Rheumatoid arthritis (chief complaint) Seronegative RAOsteopenia High risk medication monitoring 6 [facility] [place]. [facility] [address], [place], [address], [place]. tel:[phone] Referring Provider: Yanick Lentz, [facility] [address], [place], [address]. tel:[phone] [facility] , [address], [place], [address], [place] tel:[phone] [facility] , Seronegative RA 6 [facility] [place]. [facility] [address], [place], [address], [place]. tel:[phone] Referring Provider: Yanick Lentz, [facility] [address], [place], [address]. tel:[phone] [facility] , [address], [place], [address], [place] tel:[phone] [facility] , Seronegative RA 6 [facility] [place]. [facility] [address], [place], [address], [place]. tel:[phone] Referring Provider: Yanick Lentz, [facility] [address], [place], [address]. tel:[phone] Office/Outpa tient Visit, Est [facility] , [address], [place], [address], [place] tel:[phone] [facility] , Rheumatoid arthritis (chief complaint) Seronegative RAOsteopenia High risk medication monitoring 6 Reena Herndon. [facility] [address], [place], [address], [place]. tel:[phone] Referring Provider: Yanick Lentz, [facility] [address], [place], [address]. tel:[phone] [facility] , [address], [place], [address], [place] tel:[phone] [facility] , No Information 6 Reena Herndon. [facility] [address], [place], [address], [place]. tel:[phone] Referring Provider: Yanick Lentz, [facility] [address], [place], [address]. tel:[phone] [facility] , [address], [place], [address], [place] tel:[phone] [facility] , Seronegative RA 6 Reenacassidy Herndon. [facility] [address], [place], [address], [place]. tel:[phone] Referring Provider: Yanick Lentz, [facility] [address], [place], [address]. tel:[phone] [facility] , [address], [place], [address], [place] tel:[phone] [facility] , Seronegative RA Nov- 0-201 5 Skemp Christopher. [facility] [address], [place], [address], [place]. tel:[phone] Referring Provider: Christopher Skemp A, [facility] [address], [place], [address]. tel:[phone] [facility] , [address], [place], [address], [place] tel:[phone] [facility] , Seronegative RA 7 5 Reena Herndon. [facility] [address], [place], [address], [place]. tel:[phone] [facility] , [address], [place], [address], [place] tel:[phone] [facility] , Seronegative RA Mar- 5201 5 Reena Herndon. [facility] [address], [place], [address], [place]. tel:[phone] Referring Provider: Yanick Lentz, [facility] [address], [place], [address]. tel:[phone] [facility] , [address], [place], [address], [place] tel:[phone] [facility] , Seronegative RA 6201 5 Reena Herndon. [facility] [address], [place], [address], [place]. tel:[phone] Office/Outpa tient Visit, Est [facility] , [address], [place], [address], [place] tel:[phone] [facility] , Rheumatoid arthritis (chief complaint) Rheumatoid ArthritisOst eopeniaThera peutic Drug Monitoring Reena Herndon. [facility] [address], [place], [address], [place]. tel:[phone] Referring Provider: Yanick Lentz, [facility] [address], [place], [address]. tel:[phone] [facility] , [address], [place], [address], [place] tel:[phone] [facility] , Rheumatoid Arthritis Reena Herndon. [facility] [address], [place], [address], [place]. tel:[phone] Referring Provider: Yanick Lentz, [facility] [address], [place], [address]. tel:[phone] [facility] , [address], [place], [address], [place] tel:[phone] [facility] , Rheumatoid Arthritis Reena Herndon. [facility] [address], [place], [address], [place]. tel:[phone] Referring Provider: Yanick Lentz, [facility] [address], [place], [address]. tel:[phone] Office/Outpa tient Visit, Est [facility] , [address], [place], [address], [place] tel:[phone] [facility] , Rheumatoid arthritis (chief complaint) Rheumatoid ArthritisThe rapeutic Drug MonitoringOs teopenia Reena Herndon. [facility] , [facility] [address], [place], [address], [place]. tel:[phone] Referring Provider: Yanick Lentz, [facility] [address], [place], [address]. tel:[phone] [facility] , [address], [place], [address], [place] tel:[phone] [facility] , No Information Reena Herndon. [facility] [address], [place], [address], [place]. tel:[phone] Referring Provider: Yanick Lentz, [facility] [address], [place], [address]. tel:[phone] [facility] , [address], [place], [address], [place] tel:[phone] [facility] , Rheumatoid Arthritis Reena Herndon. [facility] [address], [place], [address], [place]. tel:[phone] Referring Provider: Yanick Lentz, [facility] , [facility] [address], [place], [address]. tel:[phone] [facility] , [address], [place], [address], [place] tel:[phone] [facility] , Rheumatoid Arthritis 5 Reena Herndon. [facility] [address], [place], [address], [place]. tel:[phone] Office/Outpa tient Visit, Est [facility] , [address], [place], [address], [place] tel:[phone] [facility] , Rheumatoid Arthritis (chief complaint) Rheumatoid ArthritisDis order of bone and cartilage, unspecifiedT herapeutic Drug Monitoring Reena Herndon. [facility] [address], [place], [address], [place]. tel:[phone] Referring Provider: Yanick Lentz, [facility] [address], [place], [address]. tel:[phone] [facility] , [address], [place], [address], [place] tel:[phone] [facility] , Rheumatoid Arthritis 5 Reena Herndon. [facility] [address], [place], [address], [place]. tel:[phone] Referring Provider: Yanick Lentz, [facility] [address], [place], [address]. tel:[phone] [facility] , [address], [place], [address], [place] tel:[phone] [facility] , Rheumatoid Arthritis 5 Reena Herndon. [facility] [address], [place], [address], [place]. tel:[phone] [facility] , [address], [place], [address], [place] tel:[phone] [facility] , Rheumatoid Arthritis 4 Reena Herndon. [facility] [address], [place], [address], [place]. tel:[phone] Referring Provider: Yanick Lentz, [facility] [address], [place], [address]. tel:[phone] [facility] , [address], [place], [address], [place] tel:[phone] [facility] , Rheumatoid Arthritis 4 Reena Herndon. [facility] [address], [place], [address], [place]. tel:[phone] [facility] , [address], [place], [address], [place] tel:[phone] [facility] , Rheumatoid Arthritis 4 Reena Herndon. [facility] [address], [place], [address], [place]. tel:[phone] Referring Provider: Yanick Lentz, [facility] [address], [place], [address]. tel:[phone] [facility] , [address], [place], [address], [place] tel:[phone] [facility] , Rheumatoid Arthritis 2 4 Reena Herndon. [facility] [address], [place], [address], [place]. tel:[phone] Office/Outpa tient Visit, Est [facility] , [address], [place], [address], [place] tel:[phone] [facility] , Rheumatoid Arthritis (chief complaint) Rheumatoid ArthritisThe rapeutic Drug MonitoringDi sorder of bone and cartilage, unspecifiedP lantar fascial fibromatosis 0 4 Reena Herndon. [facility] [address], [place], [address], [place]. tel:[phone] Referring Provider: Yanick Lentz, [facility] [address], [place], [address]. tel:[phone] [facility] , [address], [place], [address], [place] tel:[phone] [facility] , Rheumatoid Arthritis Feb- 4 Reena Herndon. [facility] [address], [place], [address], [place]. tel:[phone] Referring Provider: Yanick Lentz, [facility] [address], [place], [address]. tel:[phone] [facility] , [address], [place], [address], [place] tel:[phone] [facility] , Rheumatoid Arthritis 4 Reenacassidy Herndon. [facility] [address], [place], [address], [place]. tel:[phone] [facility] , [address], [place], [address], [place] tel:[phone] [facility] , Rheumatoid Arthritis 0 4 [facility] Yanick. [facility] [address], [place], [address], [place]. tel:[phone] Referring Provider: Yanick Lentz, [facility] [address], [place], [address]. tel:[phone] [facility] , [address], [place], [address], [place] tel:[phone] [facility] , Rheumatoid Arthritis 0 4 [facility] Yanick. [facility] [address], [place], [address], [place]. tel:[phone] Office/Outpa tient Visit, Est [facility] , [address], [place], [address], [place] tel:[phone] [facility] , Rheumatoid Arthritis (chief complaint) Rheumatoid ArthritisDis order of bone and cartilage, unspecifiedT herapeutic Drug MonitoringDy suria 4 [facility] Yanick. [facility] [address], [place], [address], [place]. tel:[phone] Referring Provider: Yanick Lentz, [facility] [address], [place], [address]. tel:[phone] [facility] , [address], [place], [address], [place] tel:[phone] [facility] , Rheumatoid Arthritis 4 Reenacassidy Herndon. [facility] [address], [place], [address], [place]. tel:[phone] Referring Provider: Yanick Lentz, [facility] [address], [place], [address]. tel:[phone] [facility] , [address], [place], [address], [place] tel:[phone] [facility] , Monitor chronic high risk medications (chief complaint) No Information 4 Reenacassidy Herndon. [facility] [address], [place], [address], [place]. tel:[phone] Referring Provider: Yanick Lentz, [facility] [address], [place], [address]. tel:[phone] [facility] , [address], [place], [address], [place] tel:[phone] [facility] , Rheumatoid Arthritis 4 Reenacassidy Herndon. [facility] [address], [place], [address], [place]. tel:[phone] [facility] , [address], [place], [address], [place] tel:[phone] [facility] , Rheumatoid Arthritis 4 Reena Yanick. [facility] [address], [place], [address], [place]. tel:[phone] Referring Provider: Yanick Lentz, [facility] [address], [place], [address]. tel:[phone] [facility] , [address], [place], [address], [place] [phone] [facility] , Rheumatoid Arthritis 4 Reena Herndon. [facility] [address], [place], [address], [place]. tel:[phone] [facility] , [address], [place], [address], [place] [phone] [facility] , Rheumatoid Arthritis 4 Reenacassidy Herndon. [facility] [address], [place], [address], [place]. tel:[phone] [facility] , [address], [place], [address], [place] [phone] [facility] , Rheumatoid Arthritis 3 Reenacassidy Herndon. [facility] [address], [place], [address], [place]. tel:[phone] Referring Provider: Yanick Lentz, [facility] [address], [place], [address]. tel:[phone] [facility] , [address], [place], [address], [place] [phone] [facility] , Rheumatoid Arthritis 3 Reena Herndon. [facility] [address], [place], [address], [place]. tel:[phone] [facility] , [address], [place], [address], [place] tel:[phone] [facility] , Rheumatoid Arthritis 3 [facility]. [facility] [address], [place], [address], [place]. tel:[phone] Office/Outpa tient Visit, Est [facility] , [address], [place], [address], [place] tel:[phone] [facility] , Rheumatoid Arthritis (chief complaint) Rheumatoid ArthritisDis order of bone and cartilage, unspecifiedT herapeutic Drug Monitoring 3 [facility] Yanick. [facility] [address], [place], [address], [place]. tel:[phone] Referring Provider: Yanick Lentz, [facility] [address], [place], [address]. tel:[phone] [facility] , [address], [place], [address], [place] tel:[phone] [facility] , Rheumatoid Arthritis 3 [facility] Yan[place]. [facility] [address], [place], [address], [place]. tel:[phone] Referring Provider: Yanick Lentz, [facility] [address], [place], [address]. tel:[phone] [facility] , [address], [place], [address], [place] tel:[phone] [facility] , Rheumatoid Arthritis 3 Reena Herndon. [facility] [address], [place], [address], [place]. tel:[phone] [facility] , [address], [place], [address], [place] tel:[phone] [facility] , Rheumatoid Arthritis Reena Herndon. [facility] [address], [place], [address], [place]. tel:[phone] Referring Provider: Yanick Lentz, [facility] [address], [place], [address]. tel:[phone] [facility] , [address], [place], [address], [place] tel:[phone] [facility] , Rheumatoid Arthritis Reena Herndon. [facility] [address], [place], [address], [place]. tel:[phone] Office/Outpa tient Visit, Est [facility] , [address], [place], [address], [place] tel:[phone] [facility] , Rheumatoid Arthritis (chief complaint) Rheumatoid ArthritisDis order of bone and cartilage, unspecifiedT herapeutic Drug Monitoring 3 Reena Herndon. [facility] [address], [place], [address], [place]. tel:[phone] Referring Provider: Yanick Lentz, [facility] [address], [place], [address]. tel:[phone] [facility] , [address], [place], [address], [place] tel:[phone] [facility] , Rheumatoid Arthritis 7 3 Reena Yanick. [facility] [address], [place], [address], [place]. tel:[phone] Referring Provider: Yanick Lentz, [facility] [address], [place], [address]. tel:[phone] [facility] , [address], [place], [address], [place] tel:[phone] [facility] , Rheumatoid Arthritis 0 3 Reena Herndon. [facility] [address], [place], [address], [place]. tel:[phone] [facility] , [address], [place], [address], [place] tel:[phone] [facility] , No Information 2 3 Reena Herndon. [facility] [address], [place], [address], [place]. tel:[phone] Referring Provider: Yanick Lentz, [facility] [address], [place], [address]. tel:[phone] Office/Outpa tient Visit, Est [facility] , [address], [place], [address], [place] tel:[phone] [facility] , Rheumatoid Arthritis (chief complaint) Rheumatoid ArthritisDis order of bone and cartilage, unspecifiedT herapeutic Drug MonitoringDi sorders of bursae and tendons in shoulder region, unspecified Apr-2 3 Reena Yanick. [facility] [address], [place], [address], [place]. tel:[phone] Referring Provider: Yanick Lentz, [facility] [address], [place], [address]. tel:[phone] [facility] , [address], [place], [address], [place] tel:[phone] [facility] , Rheumatoid Arthritis Apr-0 3 Reena Yanick. [facility] [address], [place], [address], [place]. tel:[phone] Referring Provider: Yanick Lentz, [facility] [address], [place], [address]. tel:[phone] [facility] , [address], [place], [address], [place] tel:[phone] [facility] , Rheumatoid Arthritis Sep- 3 Reena Yanick. [facility] [address], [place], [address], [place]. tel:[phone] Referring Provider: Yanick Lentz, [facility] [address], [place], [address]. tel:[phone] [facility] , [address], [place], [address], [place] tel:[phone] [facility] , Rheumatoid Arthritis 3 Reena Herndon. [facility] [address], [place], [address], [place]. tel:[phone] Office/Outpa tient Visit, Est [facility] , [address], [place], [address], [place] tel:[phone] [facility] , Rheumatoid Arthritis (chief complaint) Rheumatoid ArthritisThe rapeutic Drug MonitoringDi sorders of bursae and tendons in shoulder region, unspecifiedO ther bursitis disordersDis order of bone and cartilage, unspecified 3 Reena Herndon. [facility] [address], [place], [address], [place]. tel:[phone] Referring Provider: Yanick Lentz, [facility] [address], [place], [address]. tel:[phone] [facility] , [address], [place], [address], [place] tel:[phone] [facility] , No Information 3 Reena Yanick. [facility] [address], [place], [address], [place]. tel:[phone] Referring Provider: Yanick Lentz, [facility] [address], [place], [address]. tel:[phone] Office/Outpa tient Visit, Est [facility] , [address], [place], [address], [place] tel:[phone] [facility] , Rheumatoid Arthritis (chief complaint) Rheumatoid ArthritisOth er specified counselingTh erapeutic Drug MonitoringDi sorders of bursae and tendons in shoulder region, unspecified 0201 2 Reena Herndon. [facility] [address], [place], [address], [place]. tel:[phone] Referring Provider: Yanick Lentz, [facility] [address], [place], [address]. tel:[phone] Family History Family Member Type Diagnosis Age At Onset Problem (finding) No family hist ory of Rheumatoid arthritis Payers Payer name Insurance type Covered alliance party ID Authoriza tion(s) No Information Social [...]
--- OUTSIDE RECORDS SUMMARY | 2024-03-26 07:08 | XMS_ITS | Referral Summary ---
Author Organization [place] Address [address] [place] [address]. [place] [address] Care Team Providers Care Rough Rice Tender Name Role Phone Clinic, Kayce [place] Primary Care Provider + Allergies Active Allergy [...] T Respiratory Rate 16 05/27/2019 9:38 AM EARLY INTERVENTION SPECIALIST Oxygen Saturation 95% 05/27/2019 9:38 AM EARLY INTERVENTION SPECIALIST Inhaled Oxygen Concentration - - Weight 93 kg (205 lb) 05/25/2019 2:34 PM EARLY INTERVENTION SPECIALIST Height 167.6 cm (5' 6) 05/25/2019 2:34 PM EARLY INTERVENTION SPECIALIST Body Mass Index 33.09 05/25/2019 2:34 PM EARLY INTERVENTION SPECIALIST Plan of Treatment Not on file Care Teams Rough Rice Tender Relationship Specialty Start Date End Date Clinic, Kayce Nieto [address] [facility] [place] [address] PCP - General 07/01/17
--- OUTSIDE RECORDS SUMMARY | 2024-03-26 07:08 | XMS_ITS | Clinical Summary ---
Author Organization [place] Address [address] [place] [address]. [place] [address] Care Team Providers Care Director [employer] [facility] Name Role Phone Clinic, Kayce Vivek Primary [...] T Respiratory Rate 16 05/27/2019 9:38 AM [employer] Oxygen Saturation 95% 05/27/2019 9:38 AM [employer] Inhaled Oxygen Concentration - - Weight 93 kg (205 lb) 05/25/2019 2:34 PM [employer] Height 167.6 cm (5' 6) 05/25/2019 2:34 PM [employer] Body Mass Index 33.09 05/25/2019 2:34 PM [employer] Plan of Treatment Not on file Care Teams Director [employer] Relationship Specialty Start Date End Date Clinic, Kayce Doyle [address] [place] [address] [place] [place] [address] PCP - General 07/01/17
--- OUTSIDE RECORDS SUMMARY | 2024-03-26 07:08 | XMS_ITS | Clinical Summary ---
Author Organization [facility] Address [place], [place] [address] Care Team Providers Care Draw Furnace Tender Name Role Phone Isreal Veronica MD Primary [...] Resolved Date Diabetes mellitus type II 09/20/2009 Overview (09/01/2013): a system change updated this record. This [...] Comments Blood Pressure 132/68 05/30/2022 11:40 AM WAREHOUSE [employer]RE[employer] HANDLER Pulse 71 05/30/2022 11:40 AM WAREHOUSE [employer]RE[employer] HANDLER Temperature 36.3 ??C (97.3 ??F) 05/30/2021 2:32 PM CS T Respiratory Rate 16 05/30/2022 11:40 AM WAREHOUSE [employer]RE[employer] HAND[employer]ER Oxygen Saturation 97% 05/30/2022 11:40 AM WAREHOUSE FREIGHT HANDLER Inhaled Oxygen Concentration - - Weight 95.3 kg (210 lb 1.6 oz) 05/30/2022 11:40 AM WAREHOUSE [employer]RE[employer] HANDLER Height 169.2 cm (5' 6.6) 10/06/2020 8:32 [...] C screening test COLONOSCOPY 08/08/2018 11:56 AM WAREHOUSE [employer]RE[employer] HANDLER from Last 3 Months or Most Recently Relevant to Health Maintenance Results * (ABNORMAL) LIPID PANEL W REFLEX MEASURED LDL (10/06/2020 9:15 AM CDT) CHOLESTEROL,TOTAL 190 100 - 199 mg/dL 10/06/2020 9:58 AM CDT [facility] TRIGLYCERIDES 226(H) <150 mg/dL 10/06/2020 9:58 AM CDT [facility] HDL CHOLESTEROL 47 >40 mg/dL 9:58 AM CDT [facility] NON-HDL CHOLESTEROL 143 <145 mg/dl 10/06/2020 9:58 AM CDT [facility] CHOL/HDL RATIO 4.04 <4.50 10/06/2020 9:58 AM CDT [facility] LDL CHOLESTEROL 98 <=130 mg/dL 10/06/2020 9:58 AM CDT [facility] PROVIDER ORDERED STATUS RANDOM 10/06/2020 9:58 AM CDT [facility] Blood BLOOD SPECIMEN / Unknown Venipuncture / Unknown 10/06/2020 9:15 AM CDT 10/06/2020 9:17 AM CDT Daphney Jacobs NP CHEMISTRY [address] [address] * ANTI HCV (03/01/2020 8:35 AM CDT) HEPATITIS C ANTIBODY Non-React joanne Non-React joanne 03/01/2020 4:57 PM CDT [facility] Comment:Antibodies to HCV no t detected; does not exclude the possibility of exposure to HCV. Blood BLOOD SPECIMEN / Unknown Venipuncture / Unknown 03/01/2020 8:35 AM CDT 03/01/2020 8:36 AM CDT Daphney Jacobs LUMBER SORTER SEND OUTS [facility] [address] [place] [address], [place] * COLONOSCOPY (08/08/2018 11:56 AM WAREHOUSE FREIGHT HANDLER) 08/08/2018 11:5 6 AM WAREHOUSE FREIGHT HANDLER Narrative Transcriptions Arlyn Chilel DO - 08/11/2018 10:31 AM CST Patient Name: Shakila Galarza Procedure Date: 08/08/2018 Gender: Male Date [...] Comments Code Status Discussion: Discussed Care Teams Draw Furnace Tender Relationship Specialty Start Date End Date Isreal Veronica MD [address] [place] [address] PCP - General Family Practice 01/04/22
--- NOTE | 2024-03-26 07:15 | CRLHL7_ITS ---
For Patients: As a result of the Century Cures Act, medical imaging exams and procedure reports are released immediately into your electronic medical record. You may view this report before your referring provider. If you have questions, please contact your health care provider. INDICATION: Low back pain. COMPARISON: None. TECHNIQUE: Sagittal T1, T2, and STIR sequences. Axial T1 and T2 weighted sequences. FINDINGS: Lumbar curve convex the left. In sagittal plane, normal vertebral body alignment. No fractures. No vertebral body loss of height. No spondylolisthesis. No ligamentous injury. No suspicious osseous lesions. Normal conus terminates at L1-2. Marrow edema of the articular processes of the bilateral L4-5 facet joints which may be secondary to stress reaction or inflammation from facet arthritis. T12-L1: No spinal canal neural foraminal narrowing. L1-2: Disc degeneration. Mild Modic type 1 endplate changes. Diffuse disc bulge eccentric to the left. Mild narrowing of the spinal canal. Mild right and moderate severe left neural foraminal narrowing. Potential impingement of the exiting left L1 nerve root. Mild facet arthropathy. L2-3: Disc degeneration loss disc height. Diffuse disc bulge. Mild narrowing of spinal canal. Mild narrowing of the right neural foramen. No narrowing of the left neural foramen. L3-4: Disc degeneration. Diffuse disc bulge eccentric to the right. Moderate narrowing of spinal canal. Moderate severe right and moderate left neural foraminal narrowing. Potential impingement of the exiting right L3 nerve root. Mild facet arthropathy. L4-5: Disc degeneration diffuse disc bulge eccentric to the right. Posterior disc herniation measures approximately 2 mm in short axis. Mild narrowing of spinal canal. Moderate severe narrowing of the bilateral foramina. Potential impingement of the L4 nerve roots. Mild facet arthropathy. L5-S1: Disc degeneration. Diffuse disc bulge and endplate osteophytic ridging eccentric to the left. No narrowing of the spinal canal. No impingement of the traversing S1 nerve roots. Moderate right and moderate severe left neural foraminal narrowing. Potential impingement of the exiting left L5 nerve root. Mild facet arthropathy. Degenerative changes of the SI joints. IMPRESSION: 1. Normal alignment. No fractures. 2. Marrow edema of the articular processes of the bilateral L4-5 facet joints which may be secondary to stress reaction or inflammation. 3. Lumbar spondylosis. 4. At L1-2, moderate to severe narrowing of the left neural foramen. 5. At L3-4, moderate narrowing of the spinal canal. Moderate severe right and moderate left neural foraminal narrowing. Potential impingement of the exiting right L3 nerve root 6. At L4-5, moderate to severe narrowing of the bilateral neural foramina. 7. At L5-S1, moderate right and moderate to severe left neural foraminal narrowing. Dictated by Edis Martinez MD @ 03/27/2024 1:06:16 PM (Electronically Signed)
== END 2024-03-26 07:06 | disposition home or self-care (01) ==
LOC: MRI 07:06
PROVIDERS: PCP Family Medicine; Visit Provider Family Medicine
DX: M54.50 Low back pain, unspecified (principal); M47.896 Other spondylosis, lumbar region; M51.26 Other intervertebral disc displacement, lumbar region; M51.27 Other intervertebral disc displacement, lumbosacral region; M54.16 Radiculopathy, lumbar region
CPT/HCPCS: 72148

== ENCOUNTER 2025-03-23 08:31 | Outpatient (CLI) | payer OTHER, SELFPAY | END 2025-03-23 08:32 | disposition home or self-care (01) | PROVIDERS: PCP Family Medicine; Visit Provider Family Medicine | DX: I10 Essential (primary) hypertension (principal); E11.9 Type 2 diabetes mellitus without complications; E78.2 Mixed hyperlipidemia; E66.9 Obesity, unspecified; M06.9 Rheumatoid arthritis, unspecified; Z12.5 Encounter for screening for malignant neoplasm of prostate | CPT/HCPCS: 80048; 80061; 84460; G0103 ==

== ENCOUNTER 2025-05-19 07:24 | Outpatient (CLI) | payer OTHER, SELFPAY ==
--- NOTE | 2025-05-19 07:45 | CRLHL7_ITS ---
For Patients: As a result of the Century Cures Act, medical imaging exams and procedure reports are released immediately into your electronic medical record. You may view this report before your referring provider. If you have questions, please contact your health care provider. DIGITAL DIAGNOSTIC BILATERAL MAMMOGRAM USING TOMOSYNTHESIS AND COMPUTER-AIDED DETECTION RIGHT BREAST ULTRASOUND CLINICAL HISTORY: RIGHT breast lump. COMPARISON: None. TECHNIQUE: Digital BILATERAL mammogram in four projections with computer-aided detection. Tomosynthesis was used in this interpretation. Real-time ultrasound imaging of RIGHT breast with imaging documentation. BREAST COMPOSITION: There are scattered areas of fibroglandular density. FINDINGS: 3D CC/MLO BILATERAL mammogram images submitted. Mild fibroglandular tissues are present bilaterally. No architectural distortion or suspicious mass. No suspicious calcifications. No adenopathy. Targeted RIGHT breast ultrasound performed in the area of concern. At 11 o`clock 1 cm, there is normal fibroglandular tissue. No fibrocystic change or mass. IMPRESSION: Gynecomastia, mild. No malignancy. RECOMMENDATIONS: Clinical follow-up. A lay language report of this examination will be provided to the patient. BI-RADS Category 2: Benign Dictated by Isreal George MD @ 05/19/2025 9:54:00 AM jj/Dictated by: Isreal George MD @ 05/19/2025 9:54:00 AM (Electronically Signed)
--- NOTE | 2025-05-19 08:15 | CRLHL7_ITS ---
For Patients: As a result of the Cures Act, medical imaging exams and procedure reports are released immediately into your electronic medical record. You may view this report before your referring provider. If you have questions, please contact your health care provider. SEE DIGITAL DIAGNOSTIC BILATERAL MAMMOGRAM PERFORMED SAME DAY CRL:rachelle bush/Dictated by: Isreal George MD @ 05/19/2025 9:52:00 AM (Electronically Signed)
== END 2025-05-19 07:25 | disposition home or self-care (01) ==
LOC: MAMMO 07:25
PROVIDERS: PCP Family Medicine; Visit Provider Family Medicine
DX: N63.10 Unspecified lump in the right breast, unspecified quadrant (principal); N62 Hypertrophy of breast
CPT/HCPCS: 76642; 77066; G0279

== ENCOUNTER 2025-06-22 08:02 | Outpatient (CLI) | payer OTHER, SELFPAY | END 2025-06-22 08:03 | disposition home or self-care (01) | LOC: NFLDREF 06-27 20:42 | PROVIDERS: PCP Family Medicine; Referring Provider Family Medicine; Visit Provider Family Medicine | DX: E11.9 Type 2 diabetes mellitus without complications (principal); Z79.4 Long term (current) use of insulin | CPT/HCPCS: 82043; 82570 ==